=== PATIENT | female | born 1965 | race Caucasian/White ===

== ENCOUNTER 2016-10-11 10:41 | Outpatient (CLI) | payer BC | END 2016-10-11 10:42 | disposition home or self-care (01) | DX: N95.0 Postmenopausal bleeding (principal); Z01.812 Encounter for preprocedural laboratory examination ==

== ENCOUNTER 2016-10-13 07:47 | Day surgery (SDC) | payer BC ==
[~2016-10-13 07:47] MED LIST: CELECOXIB 100 MG CAPSULE PO ONE; miSOPROStol 200 MCG TABLET ONE
[2016-10-13] MEDS ORDERED: LACTATED RINGERS 1,000 ML IV ONE ×3 (08:20→10:00)
[2016-10-13] MEDS ORDERED: PROPOFOL 200 MG/20 ML VIAL IVP ONE (08:30)
[2016-10-13] MEDS ORDERED: fentaNYL 100 MCG/2 ML VIAL IVP ONE (08:30)
[2016-10-13] MEDS ORDERED: MIDAZOLAM 2 MG/2 ML VIAL IVP ONE (08:30)
[2016-10-13] MEDS ORDERED: ONDANSETRON 4 MG/2 ML VIAL IVP ONE (08:30)
[2016-10-13] MEDS ORDERED: DEXAMETHASONE 4 MG/ML VIAL IVP ONE (08:30)
[2016-10-13] MEDS ORDERED: LIDOCAINE-PF 2% 10 ML AMP SUBQ ONE (08:30)
[2016-10-13] MEDS: MEPERIDINE 50 MG/ML SYRINGE ONE ×2 (09:30→09:37)
[2016-10-13] MEDS: fentaNYL 100 MCG/2 ML VIAL ONE ×2 (09:34→09:48)
[2016-10-13] MEDS ORDERED: oxyCODONE 5 MG TABLET ONE (10:07)
== END 2016-10-13 07:48 | disposition home or self-care (01) ==
PROC: 0UB98ZX Excision of Uterus, Via Natural or Artificial Opening Endoscopic, Diagnostic (ICD-10-PCS; 2016-10-13)
PROC: 0UDB8ZZ Extraction of Endometrium, Via Natural or Artificial Opening Endoscopic (ICD-10-PCS; principal; 2016-10-13 08:50)
DX: N95.0 Postmenopausal bleeding (principal); R10.9 Unspecified abdominal pain; D25.0 Submucous leiomyoma of uterus; N85.8 Other specified noninflammatory disorders of uterus; Z90.79 Acquired absence of other genital organ(s); Z90.722 Acquired absence of ovaries, bilateral; E66.9 Obesity, unspecified; Z68.39 Body mass index [BMI] 39.0-39.9, adult; J45.20 Mild intermittent asthma, uncomplicated; F17.210 Nicotine dependence, cigarettes, uncomplicated
CPT/HCPCS: 58561; A9270; J7120

== ENCOUNTER 2016-12-24 08:35 | Outpatient (CLI) | payer BC | END 2016-12-24 08:36 | disposition home or self-care (01) | DX: S83.282A Other tear of lateral meniscus, current injury, left knee, initial encounter (principal); M65.862 Other synovitis and tenosynovitis, left lower leg; M25.462 Effusion, left knee; M23.92 Unspecified internal derangement of left knee ==

== ENCOUNTER 2017-08-18 15:08 | Emergency (ER) | payer BC ==
[2017-08-18 15:34] LABS: BILIRUBIN,URINE NEGATIVE (NEGATIVE)
[2017-08-18 15:38] LABS: UA CHARGE (STRIP ONLY) YES; UR CULTURE IF IND NOT INDICATED
[2017-08-18 15:55] LABS: BASOPHILS # (AUTO) 0.1 10^3/uL (0.0-0.1); BASOPHILS % (AUTO) 1.1 %; EOSINOPHILS # (AUTO) 0.1 10^3/uL (0.0-0.7); EOSINOPHILS % (AUTO) 0.9 %; HCT - HEMATOCRIT 42.4 % (37.0-47.0); HGB - HEMOGLOBIN 14.4 g/dL (12.0-16.0); LYMPHOCYTES # (AUTO) 2.2 10^3/uL (1.5-3.5); LYMPHOCYTES % (AUTO) 21.4 %; MEAN CORPUSCULAR HEMOGLOBIN 29.8 pg (27.0-31.0); MEAN CORPUSCULAR HGB CONC 34.1 g/dL (32.0-36.0); MEAN CORPUSCULAR VOLUME 87.7 fL (81.0-99.0); MEAN PLATELET VOLUME 8.2 fL (7.9-10.8); MONOCYTES # (AUTO) 0.8 10^3/uL (0.0-1.0); MONOCYTES % (AUTO) 7.4 %; NEUTROPHILS % (AUTO) 69.2 %; RED BLOOD COUNT 4.84 10^6/uL (4.20-5.40); RED CELL DISTRIBUTION WIDTH 14.5 % (12.0-15.0); UNCORRECTED WHITE BLOOD COUNT 10.1 x10^3/uL; WHITE BLOOD COUNT 10.1 x10^3/uL (4.8-10.8)
[2017-08-18 16:06] LABS: ALBUMIN/GLOBULIN RATIO 1.1 (1.0-2.2); BILIRUBIN,TOTAL 0.3 mg/dL (0.2-1.0); CALCIUM 9.7 mg/dL (8.5-10.3); CREATININE 0.9 mg/dL (0.4-1.0); POTASSIUM 3.8 mmol/L (3.5-5.0); TOTAL PROTEIN 7.4 g/dL (6.7-8.2)
[2017-08-18] MEDS ORDERED: ONDANSETRON 4 MG/2 ML VIAL IVP STA (16:28)
[2017-08-18] MEDS ORDERED: HYDROmorphone 1 MG/ML SYRINGE IVP STA (16:28)
[2017-08-18] MEDS ORDERED: HYDROmorphone 1 MG/ML SYRINGE ONE (16:34)
[2017-08-18] MEDS ORDERED: ONDANSETRON 4 MG/2 ML VIAL ONE (16:34)
[2017-08-18 16:48] VITALS: BP 138/92
--- NOTE | 2017-08-18 16:56 | ED Physician Documentation ---
PD HPI ABD PAIN - Stated complaint Stated Complaint: SHARP LOWER ABD PX - Chief complaint Chief Complaint: Abd Pain - History obtained from History obtained from: Patient, Family (daughter) - History of Present Illness Timing - onset: How many days ago (6) Timing - details: Intermittant Quality: Stabbing Location: RLQ Associated symptoms: No: Fever, Nausea, Vomiting, Dysuria, Chest pain Similar symptoms before: Has not had sx before - Additional information Additional information: The patient is a 48-year-old female who presents with right lower quadrant abdominal pain which she describes as a shooting, stabbing pain that has been occurring intermittently for the past 6 days. When it comes it lasts for about 5 minutes at a time and then resolve spontaneously. She denies any associated nausea, vomiting, back pain, dysuria, or fever. She denies history of similar symptoms in the past. Her past surgical history is significant for bilateral salpingo-oophorectomy for ovarian cysts. She is also status post cholecystectomy and status post bladder sling. Review of Systems Constitutional: denies: Fever Nose: denies: Congestion Throat: denies: Sore throat Cardiac: denies: Chest pain / pressure Respiratory: denies: Dyspnea, Cough GI: reports: Abdominal Pain. denies: Nausea, Vomiting, Diarrhea : denies: Dysuria Skin: denies: Rash Musculoskeletal: denies: Back pain Neurologic: denies: Focal weakness, Numbness, Headache PD PAST MEDICAL HISTORY - Past Medical History Cardiovascular: None Respiratory: None Neuro: Headache/migraine Endocrine/Autoimmune: None GI: None AREA SECRETARY: None : Incontinence HEENT: None Psych: None Musculoskeletal: Other Derm: None - Past Surgical History Past Surgical History: Yes General: Cholecystectomy Ortho: Other /AREA SECRETARY: Oophrectomy - Present Medications Home Medications: Ambulatory Orders Medication Instructions Recorded Confirmed Albuterol Sulfate [Proair Hfa] 8.5 gm IH DAILY PRN 04/16/14 10/11/16 Zolpidem Tartrate [Ambien] 10 mg PO DAILY PRN 04/16/14 10/11/16 Prochlorperazine [Compazine] 1 tab PO DAILY PRN 06/18/16 10/11/16 Verapamil [Calan] 480 mg PO DAILY 06/18/16 10/13/16 Melatonin 20 mg PO PRN PRN 10/11/16 10/13/16 - Allergies Allergies/Adverse Reactions: Allergies Allergy/AdvReac Type Severity Reaction Status Date / Time acetaminophen [From Vicodin] AdvReac Intermediate Itching Verified 08/18/17 15: 28 hydrocodone bitartrate * AdvReac Intermediate Itching Verified 08/18/17 15:28 [From Vicodin] - Social History Does the pt smoke?: No Smoking Status: Never smoker Does the pt drink ETOH?: Yes Does the pt have substance abuse?: No - Immunizations Immunizations are current?: Yes - POLST Patient has POLST: No PD ED PE NORMAL - Vitals Vital signs reviewed: Yes (initially hypertensive.) - General General: Alert and oriented X 3, Well developed/nourished - HEENT HEENT: Atraumatic, EOMI, Moist mucous membranes, Pharynx benign - Neck Neck: Supple, no meningeal sign, No adenopathy, No JVD - Cardiac Cardiac: RRR, No murmur - Respiratory Respiratory: No respiratory distress, Clear bilaterally - Abdomen Abdomen: Normal bowel sounds, Soft, Non tender, No organomegaly - Back Back: No CVA TTP, No spinal TTP - Derm Derm: No rash - Extremities Extremities: No edema, No calf tenderness / cord - Neuro Neuro: Alert and oriented X 3, No motor deficit, No sensory deficit Results - Vitals Vitals: Oxygen O2 Source Room air - Labs Labs: Laboratory Tests 08/18/17 08/18/17 08/18/17 15:15 15:40 15:40 WBC 10.1 RBC 4.84 Hgb 14.4 Hct 42.4 MCV 87.7 MCH 29.8 MCHC 34.1 RDW 14.5 Plt Count 254 MPV 8.2 Neut # 7.0 H Lymph # 2.2 [place] # 0.8 Eos # 0.1 Baso # 0.1 Absolute Nucleated RBC 0.01 Nucleated RBC % 0.0 Sodium 140 Potassium 3.8 Chloride 102 Carbon Dioxide 27 Anion Gap 11.0 BUN 14 Creatinine 0.9 Estimated GFR (MDRD) 65 L Glucose 114 H Calcium 9.7 Total Bilirubin 0.3 AST 19 ALT 18 Alkaline Phosphatase 29 L Total Protein 7.4 Albumin 3.9 Globulin 3.5 Albumin/Globulin Ratio 1.1 Lipase 23 Urine Color YELLOW Urine Clarity CLEAR Urine pH 6.0 Ur Specific [place] 1.025 Urine Protein NEGATIVE Urine Glucose (UA) NEGATIVE Urine Ketones TRACE Urine Occult Blood NEGATIVE Urine Nitrite NEGATIVE Urine Bilirubin NEGATIVE Urine Urobilinogen 0.2 (NORMAL) Ur Leukocyte Esterase NEGATIVE Ur Microscopic Review NOT INDICATED Urine Culture Comments NOT INDICATED - Rads (name of study) CT abd/pelvis w/o Radiology: Prelim report reviewed, EMP read contemporaneously, See rad report ( No urinary tract stones or obstruction.) PD MEDICAL DECISION MAKING - ED course Complexity details: reviewed results, re-evaluated patient, considered differential, d/w patient, d/w family ED course: The underlying cause of the patient's intermittent abdominal pain is unclear at this time. CBC is normal with a white count of 10.1. Chemistry panel and urinalysis are also unremarkable. CT scan of the abdomen and pelvis reveals no evidence of ureteral stone or acute appendicitis. Treatment in the emergency department included administration of hydromorphone 1 mg IV, and Zofran 4 mg IV. This was administered after one short bout of this stabbing pain described by the patient. She had no further episodes of pain while in the emergency department. Repeat examination of her abdomen reveals a benign abdomen. I discussed with her and her daughter the results of the workup, outpatient follow-up, as well as potentially worrisome signs or symptoms that should prompt reevaluation in the emergency department. Departure - Departure Disposition: 01 Home, Self Care Clinical Impression: Abdominal pain Qualifiers: Abdominal location: right lower quadrant Qualified Code(s): R10.31 - Right lower quadrant pain Condition: Stable Instructions: ED Abdominal Pain Unkn Cause, ED Abdominal Pain Adhesions Follow-Up: Juan Mauro MD [Provider Admit Priv/Credential] - Comments: You can use ibuprofen or Naprosyn if needed for pain. Follow up with your primary physician within 1-2 weeks. Call to schedule an appointment. Return to the emergency department if you develop increasing abdominal pain, persistent vomiting, fever, or otherwise worsening symptoms. Discharge Date/Time: 08/18/17 17:38
--- NOTE | 2017-08-18 16:58 | CT Preliminary Report ---
Exam: CT ABDOMEN/PELVIS W/O IMPRESSION: No urinary tract stones or obstruction. [facility] SITE ID: [id number]
--- NOTE | 2017-08-18 17:00 | CT Report ---
EXAM: CT ABDOMEN AND PELVIS (CT KUB) EXAM DATE: 08/18/2017 04:25 PM. CLINICAL HISTORY: Intermittent RLQ/right groin pain. COMPARISONS: None. TECHNIQUE: Routine axial helical CT imaging was performed through the abdomen and pelvis without IV c ontrast. Reconstructions: Coronal and sagittal. In accordance with CT protocol optimization, one or more of the following dose reduction techniques w ere utilized for this exam: automated exposure control, adjustment of mA and/or KV based on patient s ize, or use of iterative reconstructive technique. FINDINGS: Lung Bases: Unremarkable. Right Kidney/Ureter: No stones, hydronephrosis, or hydroureter. No perinephric fat stranding. Left Kidney/Ureter: No stones, hydronephrosis, or hydroureter. No perinephric fat stranding. Other Solid Organs: Noncontrast images of the solid organs are grossly unremarkable. Gallbladder/Bile Ducts: Unremarkable. Peritoneal Cavity: No free fluid, free air or april adenopathy. There is distal colon diverticulosis without evidence of diverticulitis. The appendix is normal. Pelvic Organs: No bladder stones or wall thickening. Noncontrast images of the visualized pelvic orga ns are unremarkable. Vasculature: Unremarkable. Other: None. IMPRESSION: No urinary tract stones or obstruction. [facility] Referring Provider Line: [phone] SITE ID: [id number]
== END 2017-08-18 17:38 | disposition home or self-care (01) ==
LOC: ED 15:08
DX: R10.31 Right lower quadrant pain (principal)
CPT/HCPCS: 74176; 80053; 81003; 83690; 85025; 96374; 96375; 99283; 99284; J1170; 81001; 87086

== ENCOUNTER 2017-09-11 18:37 | Emergency (ER) | payer BC ==
[2017-09-11 18:55] LABS: BILIRUBIN,URINE NEGATIVE (NEGATIVE)
[2017-09-11 18:56] LABS: UA CHARGE (STRIP ONLY) YES; UR CULTURE IF IND NOT INDICATED
[2017-09-11 20:42] LABS: BASOPHILS # (AUTO) 0.1 10^3/uL (0.0-0.1); EOSINOPHILS # (AUTO) 0.1 10^3/uL (0.0-0.7); EOSINOPHILS % (AUTO) 1.3 %; HCT - HEMATOCRIT 41.7 % (37.0-47.0); HGB - HEMOGLOBIN 14.2 g/dL (12.0-16.0); LYMPHOCYTES # (AUTO) 2.3 10^3/uL (1.5-3.5); LYMPHOCYTES % (AUTO) 25.2 %; MEAN CORPUSCULAR HEMOGLOBIN 29.8 pg (27.0-31.0); MEAN CORPUSCULAR VOLUME 87.7 fL (81.0-99.0); MEAN PLATELET VOLUME 8.7 fL (7.9-10.8); MONOCYTES # (AUTO) 0.7 10^3/uL (0.0-1.0); MONOCYTES % (AUTO) 8.2 %; NEUTROPHILS # (AUTO) 5.9 10^3/uL (1.5-6.6); NEUTROPHILS % (AUTO) 64.3 %; NUCLEATED RED BLOOD CELLS AUTO 0.1 /100WBC; RED BLOOD COUNT 4.76 10^6/uL (4.20-5.40); RED CELL DISTRIBUTION WIDTH 14.5 % (12.0-15.0); UNCORRECTED WHITE BLOOD COUNT 9.2 x10^3/uL; WHITE BLOOD COUNT 9.2 x10^3/uL (4.8-10.8)
[2017-09-11 20:50] LABS: ALBUMIN/GLOBULIN RATIO 1.1 (1.0-2.2); BILIRUBIN,TOTAL 0.3 mg/dL (0.2-1.0); CALCIUM 9.1 mg/dL (8.5-10.3); TOTAL PROTEIN 7.4 g/dL (6.7-8.2)
[2017-09-11 20:53] LABS: HCG UR QUAL NEGATIVE
[2017-09-11] MEDS ORDERED: HYDROcod/ACETAM 5/325 MG TABLET PO STA (21:42)
--- NOTE | 2017-09-11 22:12 | Ultrasound Preliminary Report ---
Exam: US PEL NON OB W/TV + DOP LTD IMPRESSION: 1. Endometrium measures 10 mm. This is thicker than expected for a postmenopausal woman. No focal mas s or polyp. If the patient has dysfunctional uterine bleeding, consider endometrial sampling. 2. No uterine fibroids. 3. Both ovaries are surgically absent per report. No adnexal abnormality or mass. No free fluid is no jeniffer. [facility] SITE ID: [id number]
[2017-09-11] MEDS ORDERED: HYDROmorphone 1 MG/ML SYRINGE IVP STA (22:17)
[2017-09-11 22:33] VITALS: BP 131/76
[2017-09-11] MEDS ORDERED: oxyCODONE/ACET 5/325 Prepack 4 PO STA (22:43)
--- NOTE | 2017-09-11 22:47 | ED Physician Documentation ---
History of Present Illness - Stated complaint Stated Complaint: ABD PX - Chief complaint Chief Complaint: Abd Pain - History obtained from History obtained from: Patient (pt is here for RLQ/Right adnexa pain. states that it started 3 weeks ago while whe was sitting at a bar. Was seen in the ER at that time and had a neg CT scan. she went to her PCM after that ER visit and the decision was made just to see if the symptoms worsened. She states that the pain did somewhat improve until this past weekend. She denies nausea has had some diarrhea over the past couple days, no urinary sx, no vaginal bleeding or vaginal discharge, no rashes, has had her ovaries removed. no travel, no skin changes, no ABX use, no fevers,) Review of Systems Constitutional: denies: Fever, Chills Throat: denies: Sore throat Cardiac: denies: Chest pain / pressure, Palpitations Respiratory: denies: Dyspnea, Cough GI: reports: Abdominal Pain, Diarrhea. denies: Abdominal Swelling, Nausea, Vomiting, Constipation, Hematemesis, Bloody / black stool : denies: Dysuria, Frequency, Hesitancy, Unable to Void, Incontinent, Hematuria, Discharge, Vaginal bleeding, Control, Hysterectomy Skin: denies: Rash, Lesions Musculoskeletal: denies: Back pain Neurologic: denies: Generalized weakness, Headache, Head injury, LOC PD PAST MEDICAL HISTORY - Past Medical History Cardiovascular: None Respiratory: None Neuro: Headache/migraine Endocrine/Autoimmune: None GI: None DEPUTY JAILER: None : Incontinence HEENT: None Psych: None Musculoskeletal: Other Derm: None - Past Surgical History Past Surgical History: Yes General: Cholecystectomy Ortho: Other /DEPUTY JAILER: Oophrectomy - Present Medications Home Medications: Ambulatory Orders Medication Instructions Recorded Confirmed Albuterol Sulfate [Proair Hfa] 8.5 gm IH DAILY PRN 04/16/14 09/11/17 Zolpidem Tartrate [Ambien] 10 mg PO DAILY PRN 04/16/14 09/11/17 Prochlorperazine [Compazine] 1 tab PO DAILY PRN 06/18/16 09/11/17 Verapamil [Calan] 480 mg PO DAILY 06/18/16 09/11/17 Melatonin 20 mg PO PRN PRN 10/11/16 09/11/17 Varenicline Tartrate [Chantix] 1 tab PO DAILY 09/11/17 09/11/17 - Allergies Allergies/Adverse Reactions: Allergies Allergy/AdvReac Type Severity Reaction Status Date / Time acetaminophen [From Vicodin] AdvReac Intermediate Itching Verified 08/18/17 15: 28 hydrocodone bitartrate * AdvReac Intermediate Itching Verified 08/18/17 15:28 [From Vicodin] - Social History Does the pt smoke?: No Smoking Status: Never smoker Does the pt drink ETOH?: Yes Does the pt have substance abuse?: No - Immunizations Immunizations are current?: Yes - POLST Patient has POLST: No PD ED PE NORMAL - Vitals Vital signs reviewed: Yes - General General: Alert and oriented X 3, No acute distress, Well developed/nourished - HEENT HEENT: Atraumatic, Moist mucous membranes - Cardiac Cardiac: RRR, No murmur - Respiratory Respiratory: No respiratory distress - Abdomen Abdomen: Normal bowel sounds, Soft. No: Non tender (TTP pinpoint lower right ABD and right adnexa. ) - Back Back: No CVA TTP - Derm Derm: Normal color, Warm and dry, No rash - Extremities Extremities: No deformity, No edema - Neuro Neuro: Alert and oriented X 3 Eye Opening: Spontaneous Motor: Obeys Commands Verbal: Oriented GCS Score: 15 - Psych Psych: Normal mood, Normal affect Results - Vitals Vitals: Vital Signs - 24 hr 09/11/17 09/11/17 09/11/17 18:38 21:48 22:31 Temperature 37.3 C Heart Rate 106 H 85 87 Respiratory 18 18 18 Rate Blood Pressure 171/99 H 130/85 H 131/76 H O2 Saturation 97 99 97 09/11/17 22:43 Temperature Heart Rate 87 Respiratory 18 Rate Blood Pressure O2 Saturation 99 Oxygen O2 Source Room air - Labs Labs: Laboratory Tests 09/11/17 09/11/17 09/11/17 18:40 18:45 20:20 WBC 9.2 RBC 4.76 Hgb 14.2 Hct 41.7 MCV 87.7 MCH 29.8 MCHC 34.0 RDW 14.5 Plt Count 251 MPV 8.7 Neut # 5.9 Lymph # 2.3 [place] # 0.7 Eos # 0.1 Baso # 0.1 Absolute Nucleated RBC 0.01 Nucleated RBC % 0.1 Sodium Potassium Chloride Carbon Dioxide Anion Gap BUN Creatinine Estimated GFR (MDRD) Glucose Calcium Total Bilirubin AST ALT Alkaline Phosphatase Total Protein Albumin Globulin Albumin/Globulin Ratio Lipase Urine Color YELLOW Urine Clarity CLEAR Urine pH 6.0 Ur Specific [place] 1.025 1.025 Urine Protein NEGATIVE Urine Glucose (UA) NEGATIVE Urine Ketones NEGATIVE Urine Occult Blood NEGATIVE Urine Nitrite NEGATIVE Urine Bilirubin NEGATIVE Urine Urobilinogen 0.2 (NORMAL) Ur Leukocyte Esterase NEGATIVE Ur Microscopic Review NOT INDICATED Urine Culture Comments NOT INDICATED Urine HCG, Qual NEGATIVE 09/11/17 20:20 WBC RBC Hgb Hct MCV MCH MCHC RDW Plt Count MPV Neut # Lymph # [place] # Eos # Baso # Absolute Nucleated RBC Nucleated RBC % Sodium 138 Potassium 4.0 Chloride 102 Carbon Dioxide 27 Anion Gap 9.0 BUN 16 Creatinine 1.0 Estimated GFR (MDRD) 58 L Glucose 100 Calcium 9.1 Total Bilirubin 0.3 AST 17 ALT 18 Alkaline Phosphatase 32 L Total Protein 7.4 Albumin 3.9 Globulin 3.5 Albumin/Globulin Ratio 1.1 Lipase 22 Urine Color Urine Clarity Urine pH Ur Specific [place] Urine Protein Urine Glucose (UA) Urine Ketones Urine Occult Blood Urine Nitrite Urine Bilirubin Urine Urobilinogen Ur Leukocyte Esterase Ur Microscopic Review Urine Culture Comments Urine HCG, Qual - Rads (name of study) pelvic US Radiology: Final report received PD MEDICAL DECISION MAKING - ED course Complexity details: reviewed old records, reviewed results, re-evaluated patient , considered differential, d/w patient, d/w family ED course: Pt had CT scan 3 weeks ago in this ER for this same pain was no acute abnormality was found. No defined abnormality seen on pelvic US today. Discussed her endometrium with her and she states that she did have a D&C for similar sx earlier this year. she states that the diarrhea that she has been having does not seem to change the pain. She has had both ovaries removed. She has no fevers. her hx and PE do not fit with acute appy. Considered femoral hernia but the CT 3 weeks ago for this same pain did not show this. UA clear today. considered PID but pt states she is not sexually active. she has not had a colonoscopy up to this point. also considered endometrosis. I discussed all of this with the patient. we discussed that no defined emergent process was found today. she expressed understanding she stated that she will call her PCM and her OB to discuss further work up and possible consult to GI. She was given return precautions. Departure - Departure Disposition: 01 Home, Self Care Clinical Impression: Abdominal pain Condition: Good Instructions: ED Abdominal Pain Unkn Cause Follow-Up: Juan Mauro MD [Primary Care Provider] - Comments: Call your primary care provider and your DEPUTY JAILER provider to discuss follow up and continued work up for this pain. No defined etiology was found today so if your symptoms worsen of if you have new symptoms you need to be seen again.
--- NOTE | 2017-09-11 23:54 | Ultrasound Report ---
EXAM: PELVIC ULTRASOUND EXAM DATE: 09/11/2017 09:41 PM. CLINICAL HISTORY: Right lower quadrant pain. COMPARISON: 08/18/2017. TECHNIQUE: Realtime transabdominal pelvic scan performed to identify the uterus and adnexa and as an overview of other pelvic structures, followed by transvaginal scan to provide greater detail of the u terus and adnexa, with static image documentation. FINDINGS: Uterus: 6.7 x 3.0 x 4.3 cm, volume 45.6 cc. Anteverted position. Normal overall size and echotexture. Masses: None. Endometrium: 10 mm. No endometrial mass or polyp. Cervix: Unremarkable. Right Ovary: Surgically absent. No adnexal mass. Left Ovary: Surgically absent. No adnexal mass. Free Fluid: None. Other: 2 small morphologically normal lymph nodes are noted in the right lower quadrant. IMPRESSION: 1. Endometrium measures 10 mm. This is thicker than expected for a postmenopausal woman. No focal mas s or polyp. If the patient has dysfunctional uterine bleeding, consider endometrial sampling. 2. No uterine fibroids. 3. Both ovaries are surgically absent per report. No adnexal abnormality or mass. No free fluid is no jeniffer. [facility] Referring Provider Line: [phone] SITE ID: [id number]
== END 2017-09-11 23:03 | disposition home or self-care (01) ==
LOC: ED 18:37
DX: R10.31 Right lower quadrant pain (principal); Z90.722 Acquired absence of ovaries, bilateral
CPT/HCPCS: 36415; 76830; 76856; 80053; 81003; 81025; 83690; 85025; 93976; 96374; 99283; 99284; A9270; J1170; 81001; 87086

== ENCOUNTER 2018-03-28 14:53 | Outpatient (CLI) | payer BC | END 2018-03-28 14:54 | disposition critical access hospital (66) | LOC: EMS 14:53 | PROVIDERS: ATTEND Surgery | DX: R04.0 Epistaxis (principal) | CPT/HCPCS: A0425; A0429 ==

== ENCOUNTER 2018-03-28 15:18 | Emergency (ER) | payer BC ==
[2018-03-28] MEDS ORDERED: LIDOCAINE-EPINEPH-TETRACAINE 3 ML SYRINGE TOP STA (16:29)
--- NOTE | 2018-03-28 17:19 | ED Physician Documentation ---
PD HPI HEENT - Stated complaint Stated Complaint: NOSE BLEED - Chief complaint Chief Complaint: Heent - History obtained from History obtained from: Patient, Family - History of Present Illness Timing - onset: How many days ago (5) Timing - duration: Days (5) Timing - details: Gradual onset, Still present Location: Nose Improves: Nothing Worsens: Everything Associated symptoms: Congestion, Rhinorrhea, Cough Similar symptoms before: Has not had sx before Recently seen: Not recently seen - Additional information Additional information: 52-year-old female with a history of reactive airway disease disease has developed acute epistaxis from the left nares. She has been able to control the bleeding intermittently and she is had bleeding intermittently now for 5 days. She has got a lot of blood all over her house and she has had a cough and congestion worsening of her wheezing and has made a plan to go into see her doctor but was diverted by this bleeding nose. She had bleeding while she was at work and the ambulance was called. Review of Systems Constitutional: denies: Fever Eyes: denies: Decreased vision Ears: denies: Ear pain Nose: reports: Rhinorrhea / runny nose, Congestion, Epistaxis Throat: denies: Sore throat Cardiac: denies: Chest pain / pressure, Palpitations Respiratory: reports: Dyspnea, Cough GI: denies: Abdominal Pain, Nausea, Vomiting : denies: Dysuria, Frequency Skin: denies: Rash Musculoskeletal: denies: Neck pain, Back pain, Extremity pain PD PAST MEDICAL HISTORY - Past Medical History Cardiovascular: None Respiratory: None Endocrine/Autoimmune: None GI: None LAMINA SEARCHER: None : Incontinence HEENT: None Psych: None Musculoskeletal: Other Derm: None - Past Surgical History Past Surgical History: Yes General: Cholecystectomy Ortho: Other /LAMINA SEARCHER: Oophrectomy - Present Medications Home Medications: Ambulatory Orders Medication Instructions Recorded Confirmed Albuterol Sulfate [Proair Hfa] 8.5 gm IH DAILY PRN 04/16/14 09/11/17 Zolpidem Tartrate [Ambien] 10 mg PO DAILY PRN 04/16/14 09/11/17 Prochlorperazine [Compazine] 1 tab PO DAILY PRN 06/18/16 09/11/17 Verapamil [Calan] 480 mg PO DAILY 06/18/16 09/11/17 Melatonin 20 mg PO PRN PRN 10/11/16 09/11/17 Varenicline Tartrate [Chantix] 1 tab PO DAILY 09/11/17 09/11/17 Azithromycin [Zithromax] 250 mg PO DAILY #6 tablet 03/28/18 predniSONE [Deltasone] 10 mg PO DAILY #26 tablet 03/28/18 - Allergies Allergies/Adverse Reactions: Allergies Allergy/AdvReac Type Severity Reaction Status Date / Time acetaminophen [From Vicodin] AdvReac Intermediate Itching Verified 03/28/18 15: 24 hydrocodone bitartrate * AdvReac Intermediate Itching Verified 03/28/18 15:24 [From Vicodin] - Social History Does the pt smoke?: No Smoking Status: Never smoker Does the pt drink ETOH?: Yes Does the pt have substance abuse?: No - Immunizations Immunizations are current?: Yes - POLST Patient has POLST: No PD ED PE NORMAL - Vitals Vital signs reviewed: Yes (hypertensive ) - General General: Alert and oriented X 3, No acute distress, Well developed/nourished - HEENT HEENT: Atraumatic, PERRL, EOMI, Other (There is erythema along the umbo and flattening of the umbo on the left. The right is less involved. There is evidence of recent bleeding from a friable nasal septum on the left ) - Neck Neck: Supple, no meningeal sign, No bony TTP - Cardiac Cardiac: RRR, No murmur - Respiratory Respiratory: No respiratory distress, Other (diminished breath sounds with faint wheeze bilaterally ) - Derm Derm: Normal color, Warm and dry, No rash - Extremities Extremities: No deformity, No edema - Neuro Neuro: Alert and oriented X 3, No motor deficit, No sensory deficit, Normal speech Eye Opening: Spontaneous Motor: Obeys Commands Verbal: Oriented GCS Score: 15 - Psych Psych: Normal mood, Normal affect Results - Vitals Vitals: Vital Signs - 24 hr 03/28/18 15:19 Temperature 36.9 C Heart Rate 95 Respiratory 18 Rate Blood Pressure 150/94 H O2 Saturation 94 Oxygen O2 Source Room air Procedures - Epistaxis Site: Left, Anterior Preparation: Clamp / pressure applied, Other (l.e.t. applied) Treatment: Silver Nitrate Other: Observed - no bleeding, Pt tolerated well, Antibiotics prescribed PD MEDICAL DECISION MAKING - ED course Complexity details: reviewed results, re-evaluated patient, considered differential, d/w patient, d/w family ED course: 52-year-old female with acute epistaxis has reactive airway disease and acute exacerbation. Nasal septum was cauterized with silver nitrate with good result. Will place her on some prednisone and azithromycin for otitis and exacerbation of reactive airway disease. - Sepsis Event Vital Signs: Vital Signs - 24 hr 03/28/18 15:19 Temperature 36.9 C Heart Rate 95 Respiratory 18 Rate Blood Pressure 150/94 H O2 Saturation 94 Oxygen O2 Source Room air Departure - Departure Disposition: 01 Home, Self Care Clinical Impression: Anterior epistaxis Otitis media Qualifiers: Otitis media type: suppurative Chronicity: acute Laterality: left Recurrence: not specified as recurrent Spontaneous tympanic membrane rupture: without spontaneous rupture Qualified Code(s): H66.002 - Acute suppurative otitis media without spontaneous rupture of ear drum, left ear Exacerbation of asthma Qualifiers: Asthma severity: mild Asthma persistence: intermittent Qualified Code(s): J45.21 - Mild intermittent asthma with (acute) exacerbation Condition: Stable Instructions: ED Otitis Media Acute Adult, ED Reactive Airway Disease, ED Nosebleed Follow-Up: Juan Mauro MD [Primary Care Provider] - Prescriptions: Azithromycin [Zithromax] 250 mg PO DAILY #6 tablet predniSONE [Deltasone] 10 mg PO DAILY #26 tablet
[2018-03-28 17:44] VITALS: BP 140/90
== END 2018-03-28 17:43 | disposition home or self-care (01) ==
LOC: EDUNIT# → SUPCPDRO 15:18 → ED 15:18
DX: R04.0 Epistaxis (principal); H66.002 Acute suppurative otitis media without spontaneous rupture of ear drum, left ear; J45.901 Unspecified asthma with (acute) exacerbation
CPT/HCPCS: 30901; 99283

== ENCOUNTER 2018-03-29 08:37 | Emergency (ER) | payer BC ==
[2018-03-29 08:50] VITALS: BP 112/98
--- NOTE | 2018-03-29 08:54 | ED Physician Documentation ---
PD HPI HEENT - Stated complaint Stated Complaint: NOSE BLEED - Chief complaint Chief Complaint: Heent - History obtained from History obtained from: Patient - History of Present Illness Timing - onset: Enter time (0800), Today Timing - duration: Minutes Timing - details: Abrupt onset, Still present Location: Nose Improves: Other (calcium infused cotton plegets and clamp) Worsens: Everything Associated symptoms: Congestion, Rhinorrhea, Cough Similar symptoms before: Diagnosis (anterior epistaxis) Recently seen: Emergency Dept - Additional information Additional information: 52-year-old female has developed nosebleeds over the past 5 days and she has had this happen to her multiple times. She is come to the emergency department was cauterized yesterday with silver nitrate she had control the bleeding overnight and this morning got up to go to work and had bleeding again. She does have some inflammation of the anterior septum and yesterday we placed her on some prednisone and a Zithromax for exacerbation of asthma. She has not filled these medicines as yet. 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 Review of Systems Constitutional: denies: Fever Eyes: denies: Decreased vision Nose: reports: Rhinorrhea / runny nose, Congestion Throat: denies: Sore throat Cardiac: denies: Chest pain / pressure, Palpitations Respiratory: reports: Dyspnea, Cough GI: denies: Vomiting : denies: Dysuria PD PAST MEDICAL HISTORY - Past Medical History Cardiovascular: None Respiratory: None Endocrine/Autoimmune: None GI: None SENIOR PORTFOLIO ANALYST: None : Incontinence HEENT: None Psych: None Musculoskeletal: Other Derm: None - Past Surgical History Past Surgical History: Yes General: Cholecystectomy Ortho: Other /SENIOR PORTFOLIO ANALYST: Oophrectomy - Present Medications Home Medications: Ambulatory Orders Medication Instructions Recorded Confirmed Albuterol Sulfate [Proair Hfa] 8.5 gm IH DAILY PRN 04/16/14 09/11/17 Zolpidem Tartrate [Ambien] 10 mg PO DAILY PRN 04/16/14 09/11/17 Prochlorperazine [Compazine] 1 tab PO DAILY PRN 06/18/16 09/11/17 Verapamil [Calan] 480 mg PO DAILY 06/18/16 09/11/17 Melatonin 20 mg PO PRN PRN 10/11/16 09/11/17 Varenicline Tartrate [Chantix] 1 tab PO DAILY 09/11/17 09/11/17 Azithromycin [Zithromax] 250 mg PO DAILY #6 tablet 03/28/18 predniSONE [Deltasone] 10 mg PO DAILY #26 tablet 03/28/18 - Allergies Allergies/Adverse Reactions: Allergies Allergy/AdvReac Type Severity Reaction Status Date / Time acetaminophen [From Vicodin] AdvReac Intermediate Itching Verified 03/29/18 08: 50 hydrocodone bitartrate * AdvReac Intermediate Itching Verified 03/29/18 08:50 [From Vicodin] - Social History Does the pt smoke?: No Smoking Status: Never smoker Does the pt drink ETOH?: Yes Does the pt have substance abuse?: No - Immunizations Immunizations are current?: Yes - POLST Patient has POLST: No PD ED PE NORMAL - Vitals Vital signs reviewed: Yes (hypertensive diastolic mild ) - General General: Alert and oriented X 3, Well developed/nourished, Other (mildly anxious ) - HEENT HEENT: Atraumatic, PERRL, EOMI, Other (exam of the nasal mucousa reveals the prior AgNO3 cautery site without bleeding and evidence of recent bleeding from the posterior margin of the cautery site. ) - Neck Neck: Supple, no meningeal sign, No bony TTP - Respiratory Respiratory: No respiratory distress - Derm Derm: Normal color, Warm and dry, No rash - Extremities Extremities: No deformity, No edema - Neuro Neuro: No motor deficit, No sensory deficit Eye Opening: Spontaneous Motor: Obeys Commands Verbal: Oriented GCS Score: 15 - Psych Psych: Normal mood, Normal affect Results - Vitals Vitals: Vital Signs - 24 hr 03/29/18 08:42 Temperature 36.6 C Heart Rate 99 Respiratory 20 Rate Blood Pressure 112/98 H O2 Saturation 96 Oxygen O2 Source Room air PD MEDICAL DECISION MAKING - ED course Complexity details: considered differential, d/w patient ED course: This 52-year-old female with recurrent nosebleed had silver nitrate cautery done yesterday and she appears to bleed blood today from the margin of this area that was cauterized. She has been able to control her bleeding by placing cotton pledgets soaked in calcium and clamp. She demonstrates in the emergency department that she does appear to have adequate technique. I believe that she will be able to control her nose bleeding better than placing a Rhino Rocket. I discussed these options with the patient and she will do her best to control her bleeding until her medications have improved her mucosal irritation. - Sepsis Event Vital Signs: Vital Signs - 24 hr 03/29/18 08:42 Temperature 36.6 C Heart Rate 99 Respiratory 20 Rate Blood Pressure 112/98 H O2 Saturation 96 Oxygen O2 Source Room air Departure - Departure Disposition: Home, Self Care Clinical Impression: Anterior epistaxis Condition: Stable Instructions: ED Nosebleed Follow-Up: Juan Mauro MD [Primary Care Provider] - Forms: Activity restrictions
== END 2018-03-29 09:13 | disposition home or self-care (01) ==
LOC: ED 08:37
DX: R04.0 Epistaxis (principal)
CPT/HCPCS: 99283

== ENCOUNTER 2019-05-15 13:01 | Outpatient (CLI) | payer BC ==
--- NOTE | 2019-05-16 13:14 | Ultrasound Report ---
Reason: RIGHT UPPER QUADRANT PAIN Procedure Date: 05/15/2019 Accession Number: [id number] / [id number] Procedure: US - Abdomen Limited CPT Code: FULL RESULT: EXAM: ABDOMEN ULTRASOUND LIMITED, RUQ EXAM DATE: 05/15/2019 01:35 PM. CLINICAL HISTORY: RIGHT UPPER QUADRANT PAIN. COMPARISON: None. TECHNIQUE: Real-time scanning was performed with static images obtained. FINDINGS: Liver: Liver parenchyma appears somewhat echogenic which can mask underlying mass lesions, no masses seen. Liver appears subjectively enlarged, at least 22.6 cm. Main portal vein flow: Hepatopetal. Gallbladder: Gallbladder is not seen, reportedly surgically absent. Biliary System: CBD measures The CBD is enlarged measuring up to 1 cm which can be a normal finding status post cholecystectomy. No intrahepatic or extrahepatic ductal dilatation. Other: None. IMPRESSION: Status post cholecystectomy. Echogenic liver which is most often seen with hepatic steatosis. RADIA
== END 2019-05-15 13:02 | disposition home or self-care (01) ==
LOC: DI 13:01
PROVIDERS: ATTEND Family Medicine
DX: R10.11 Right upper quadrant pain (principal); Z90.49 Acquired absence of other specified parts of digestive tract
CPT/HCPCS: 76705

== ENCOUNTER 2019-05-23 19:12 | Emergency (ER) | payer BC ==
[2019-05-23 19:41] LABS: BASOPHILS # (AUTO) 0.1 10^3/uL (0.0-0.1); BASOPHILS % (AUTO) 0.6 %; EOSINOPHILS # (AUTO) 0.1 10^3/uL (0.0-0.7); EOSINOPHILS % (AUTO) 1.3 %; HGB - HEMOGLOBIN 14.3 g/dL (12.0-16.0); LYMPHOCYTES # (AUTO) 2.1 10^3/uL (1.5-3.5); LYMPHOCYTES % (AUTO) 21.1 %; MEAN CORPUSCULAR HEMOGLOBIN 28.8 pg (27.0-31.0); MEAN CORPUSCULAR HGB CONC 31.7 g/dL (32.0-36.0); MEAN CORPUSCULAR VOLUME 90.7 fL (81.0-99.0); MONOCYTES # (AUTO) 0.8 10^3/uL (0.0-1.0); MONOCYTES % (AUTO) 8.7 %; NEUTROPHILS # (AUTO) 6.6 10^3/uL (1.5-6.6); PLT - PLATELET COUNT 259 10^3/uL (130-450); RED BLOOD COUNT 4.97 10^6/uL (4.20-5.40); RED CELL DISTRIBUTION WIDTH 14.6 % (12.0-15.0); WHITE BLOOD COUNT 9.7 x10^3/uL (4.8-10.8)
[2019-05-23 19:52] LABS: BILIRUBIN,TOTAL 0.4 mg/dL (0.2-1.0); CALCIUM 9.5 mg/dL (8.5-10.3); TOTAL PROTEIN 7.9 g/dL (6.7-8.2)
[2019-05-23 19:57] LABS: BILIRUBIN,URINE NEGATIVE (NEGATIVE); GLUCOSE, URINE (UA) NEGATIVE (NEGATIVE); KETONES,URINE (UA) NEGATIVE (NEGATIVE); LEUKOCYTE ESTERASE, URINE NEGATIVE (NEGATIVE); NITRITE,URINE NEGATIVE (NEGATIVE); OCCULT BLOOD,URINE NEGATIVE (NEGATIVE); PROTEIN,URINE TRACE mg/dL (NEGATIVE); UROBILINOGEN,URINE 0.2 (NORMAL) E.U./dL (NORMAL)
[2019-05-23 20:00] LABS: CLARITY,URINE CLEAR (CLEAR)
--- NOTE | 2019-05-23 21:39 | ED Physician Documentation ---
PD HPI ABD PAIN - Stated complaint Stated Complaint: R SIDE AB PX - Chief complaint Chief Complaint: Abd Pain - History obtained from History obtained from: Patient, Family - History of Present Illness Timing - onset: How many months ago (1) Timing - duration: Months (1) Timing - details: Gradual onset, Still present, Waxing and waning Quality: Cramping, Sharp Location: RUQ Improved by: Laying still, BM Worsened by: Moving, Position, Palpation Associated symptoms: Other (soilded herself yesterday with a bout of pain.). No: Vomiting Similar symptoms before: Has not had sx before Recently seen: Clinic - Additional information Additional information: 53-year-old female is had pain in her right abdomen for the past month. She has had increasing symptoms especially over the past 2 weeks. She has intermittent severe pain with cramping in the right side but feels like something is going to explode inside. She has had a bowel movement yesterday that happened after she had an episode of pain and she ended up soiling herself with this. She has been into see her primary care doctor and an ultrasound of the right upper quadrant has been done which demonstrates hepatic steatosis. She has her gallbladder out. Review of Systems Constitutional: denies: Fever Throat: denies: Sore throat Respiratory: denies: Cough GI: reports: Abdominal Pain. denies: Constipation : denies: Dysuria, Frequency Skin: denies: Rash Musculoskeletal: denies: Neck pain, Back pain, Extremity pain Neurologic: denies: Generalized weakness, Focal weakness, Numbness PD PAST MEDICAL HISTORY - Past Medical History Cardiovascular: None Respiratory: None Endocrine/Autoimmune: None GI: None EMBEDDED LINUX ENGINEER: None : Incontinence HEENT: None Psych: None Musculoskeletal: Other Derm: None - Past Surgical History Past Surgical History: Yes General: Cholecystectomy Ortho: Other /EMBEDDED LINUX ENGINEER: Oophrectomy - Present Medications Home Medications: Ambulatory Orders Medication Instructions Recorded Confirmed Albuterol Sulfate [Proair Hfa] 8.5 gm IH DAILY PRN 04/16/14 09/11/17 Zolpidem Tartrate [Ambien] 10 mg PO DAILY PRN 04/16/14 09/11/17 Prochlorperazine [Compazine] 1 tab PO DAILY PRN 06/18/16 09/11/17 Verapamil [Calan] 480 mg PO DAILY 06/18/16 09/11/17 Melatonin 20 mg PO PRN PRN 10/11/16 09/11/17 Varenicline Tartrate [Chantix] 1 tab PO DAILY 09/11/17 09/11/17 Azithromycin [Zithromax] 250 mg PO DAILY #6 tablet 03/28/18 predniSONE [Deltasone] 10 mg PO DAILY #26 tablet 03/28/18 - Allergies Allergies/Adverse Reactions: Allergies Allergy/AdvReac Type Severity Reaction Status Date / Time acetaminophen [From Vicodin] AdvReac Intermediate Itching Verified 05/23/19 19:23 hydrocodone bitartrate * AdvReac Intermediate Itching Verified 05/23/19 19:23 [From Vicodin] - Social History Does the pt smoke?: No Smoking Status: Never smoker Does the pt drink ETOH?: Yes Does the pt have substance abuse?: No - Immunizations Immunizations are current?: Yes - POLST Patient has POLST: No PD ED PE NORMAL - Vitals Vital signs reviewed: Yes (hypertensive ) - General General: Alert and oriented X 3, No acute distress, Well developed/nourished - HEENT HEENT: Atraumatic, PERRL, EOMI - Neck Neck: Supple, no meningeal sign - Cardiac Cardiac: RRR, No murmur - Respiratory Respiratory: No respiratory distress - Abdomen Abdomen: Normal bowel sounds, Soft, Non distended, No organomegaly, Other (tenderness to the RUQ without gaurding or rebound tenderness. ) - Back Back: No CVA TTP, No spinal TTP - Derm Derm: Normal color, Warm and dry, No rash - Extremities Extremities: No deformity, No edema - Neuro Neuro: Alert and oriented X 3, mechanic field service 2-12 intact, No motor deficit, No sensory deficit, Normal speech Eye Opening: Spontaneous Motor: Obeys Commands Verbal: Oriented GCS Score: 15 - Psych Psych: Normal mood, Normal affect Results - Vitals Vitals: Vital Signs - 24 hr 05/23/19 05/23/19 05/23/19 19:20 21:30 21:55 Temperature 36.8 C Heart Rate 88 83 86 Respiratory 18 20 18 Rate Blood Pressure 129/87 H 147/100 H 126/71 O2 Saturation 96 97 97 Oxygen O2 Source Room air - Labs Labs: Laboratory Tests 05/23/19 05/23/19 05/23/19 19:35 19:35 19:40 WBC 9.7 RBC 4.97 Hgb 14.3 Hct 45.1 MCV 90.7 MCH 28.8 MCHC 31.7 L RDW 14.6 Plt Count 259 MPV 10.0 Neut # (Auto) 6.6 Lymph # (Auto) 2.1 [place] # (Auto) 0.8 Eos # (Auto) 0.1 Baso # (Auto) 0.1 Absolute Nucleated RBC 0.00 Nucleated RBC % 0.0 Sodium 142 Potassium 4.1 Chloride 103 Carbon Dioxide 31 Anion Gap 8.0 BUN 21 H Creatinine 1.0 Estimated GFR (MDRD) 58 L Glucose 91 Calcium 9.5 Total Bilirubin 0.4 AST 18 ALT 21 Alkaline Phosphatase 32 L Total Protein 7.9 Albumin 4.0 Globulin 3.9 Albumin/Globulin Ratio 1.0 Lipase 35 Urine Color YELLOW Urine Clarity CLEAR Urine pH 6.0 Ur Specific [place] 1.020 Urine Protein TRACE Urine Glucose (UA) NEGATIVE Urine Ketones NEGATIVE Urine Occult Blood NEGATIVE Urine Nitrite NEGATIVE Urine Bilirubin NEGATIVE Urine Urobilinogen 0.2 (NORMAL) Ur Leukocyte Esterase NEGATIVE Ur Microscopic Review NOT INDICATED Urine Culture Comments NOT INDICATED Procedures - Bedside sono Bedside sono by EMP: With use of bedside ultrasound the right kidney is imaged it is without evidence of hydronephrosis and it is sonographically nontender. PD MEDICAL DECISION MAKING - ED course Complexity details: reviewed old records, reviewed results, re-evaluated patient, considered differential, d/w patient, d/w family ED course: 53-year-old female with a history of undulating right-sided abdominal pain has a relatively benign abdominal exam here today with some mild right-sided abdominal tenderness. She has had symptoms for more than 1 month. My initial reaction is to get a CT scan of her abdomen pelvis with contrast [facility] I reviewed the patient's previous CT scan for a prior visit with abdominal pain and noted that she had stool and gas throughout every cut on the picture. I suspect the patient may have chronic constipation despite having bowel movements daily. I discussed my findings with the patient and recommended she take a dose of milk of magnesia tonight she is understanding of the inability to complete the work-up tonight and will follow-up as needed. Departure - Departure Disposition: 01 Home, Self Care Clinical Impression: Abdominal pain Qualifiers: Abdominal location: right upper quadrant Qualified Code(s): R10.11 - Right upper quadrant pain Constipation Qualifiers: Constipation type: unspecified constipation type Qualified Code(s): K59.00 - Constipation, unspecified Instructions: ED Abdominal Pain Unkn Cause, ED Constipation Follow-Up: Juan Mauro MD [Primary Care Provider] -
[2019-05-23 21:57] VITALS: BP 126/71
[2019-05-23] MEDS ORDERED: MAGNESIUM HYDROXIDE 2,400 MG/30 ML UDC PO STA (22:09)
== END 2019-05-23 22:28 | disposition home or self-care (01) ==
LOC: ED 19:12
DX: R10.11 Right upper quadrant pain (principal); K59.00 Constipation, unspecified
CPT/HCPCS: 36415; 80053; 81003; 83690; 85025; 99284; A9270; 81001; 87086

== ENCOUNTER 2019-05-28 08:27 | Outpatient (CLI) | payer BC ==
--- NOTE | 2019-05-29 00:27 | XRAY Report ---
Reason: ASTHMA Procedure Date: 05/28/2019 Accession Number: [id number] / [id number] Procedure: XRS - Chest 2 View X-Ray CPT Code: 84960 FULL RESULT: EXAM: CHEST RADIOGRAPHY EXAM DATE: 05/28/2019 08:36 AM. CLINICAL HISTORY: ASTHMA. Chronic cough since September 2018. COMPARISON: 01/23/2013 9:26 AM. TECHNIQUE: 2 views. FINDINGS: Lungs/Pleura: No consolidation, airspace disease, pleural effusion or pneumothorax. Mediastinum: Heart and mediastinal contours are unremarkable. IMPRESSION: No acute cardiopulmonary disease seen. RADIA
== END 2019-05-28 08:28 | disposition home or self-care (01) ==
LOC: DI.S 08:27
PROVIDERS: ATTEND Family Medicine
DX: J45.909 Unspecified asthma, uncomplicated (principal)
CPT/HCPCS: 71046

== ENCOUNTER 2019-05-29 07:35 | Outpatient (CLI) | payer BC ==
[2019-05-29] MEDS ORDERED: IOVERSOL 320 100 ML VIAL IVP ONE ×2 (07:49→10:48)
[2019-05-29] MEDS ORDERED: IOVERSOL 320 50 ML VIAL ONE (07:49)
[2019-05-29] MEDS ORDERED: IOVERSOL 320 50 ML VIAL PO ONE (10:48)
--- NOTE | 2019-05-30 04:23 | CT Report ---
Reason: ABN US Procedure Date: 05/29/2019 Accession Number: [id number] / [id number] Procedure: CT - Abdomen/Pelvis W CPT Code: FULL RESULT: EXAM: CT ABDOMEN AND PELVIS EXAM DATE: 05/29/2019 08:54 AM. CLINICAL HISTORY: Abnormal ultrasound. COMPARISONS: ABDOMEN/PELVIS W/O 08/18/2017 4:20 PM. TECHNIQUE: Routine helical CT imaging was performed through the abdomen and pelvis. IV contrast: OPTI 320 100ML. Enteric contrast: Present. Reconstructions: Coronal and sagittal. In accordance with CT protocol optimization, one or more of the following dose reduction techniques were utilized for this exam: automated exposure control, adjustment of mA and/or KV based on patient size, or use of iterative reconstructive technique. FINDINGS: ABDOMEN: Liver: Moderate hepatic steatosis. Stomach/Distal Esophagus: No significant abnormality. Gallbladder: Cholecystectomy. Bile Ducts: No significant abnormality. Pancreas: No significant abnormality. Spleen: No significant abnormality. Kidneys: No suspicious solid appearing lesion. No hydronephrosis. Adrenals: No significant abnormality. Bowel: No obstruction. Average fecal residual. Moderate descending and sigmoid colon diverticulosis without acute diverticulitis. Appendix: Normal. Lymph Nodes: No pathologically enlarged nodes. Vasculature: Normal caliber aorta. Fluid: No significant free fluid. Abdominal Wall: No significant abnormality. Other: No significant abnormality. PELVIS: Uterus and Ovaries: No significant abnormality. Bladder: No significant abnormality. Lymph Nodes: No pathologically enlarged nodes. Fluid: No significant free fluid. Other: None. BONES: No suspicious bony lesions. LOWER CHEST: No significant consolidation or effusion. IMPRESSION: 1. No acute abdominal or pelvic abnormality. 2. Distal descending and sigmoid colon diverticulosis without evidence of acute diverticulitis. 3. Prior cholecystectomy. RADIA
== END 2019-05-29 07:36 | disposition home or self-care (01) ==
LOC: DI 07:35
PROVIDERS: ATTEND Family Medicine
DX: K57.30 Diverticulosis of large intestine without perforation or abscess without bleeding (principal); Z90.49 Acquired absence of other specified parts of digestive tract
CPT/HCPCS: 74177; Q9967

== ENCOUNTER 2019-06-26 09:16 | Outpatient (CLI) | payer BC ==
--- NOTE | 2019-06-26 11:36 | SLEEP CARE CONSULTATION ---
Information from patient questionnaire entered by Yomaira Garcia. I have reviewed and concur with the information entered by Yomaira Garcia. This document represents the service I personally performed and the decisions made by me, Jas Quispe MD, [facility]. History of Present Illness Reason for Visit: New patient Chief Complaint: reports: Insomnia, Unrefreshed sleep, Snoring, Excessive daytime sleepiness, Observed pauses in breathing, Fatigue, Frequent awakenings at night Duration of Symptoms: 25 years Usual bedtime: 6713-8197 Time it takes to fall asleep: 5-18 minutes Snores at night: Yes Observed to quit breathing while asleep: Yes Sleeps alone due to snoring: Yes Number of times waking at night: 3-5 Reasons for waking at night: reports: Bathroom Toss, Turn, or Twitch while sleeping: No Recalls having dreams: Yes Usually gets out of bed at: [id number] Feels refreshed in the morning: No Morning headache: Yes Sleepy or fatigued during the day: Yes Ever fallen asleep while driving: Yes Takes day naps: No Prior sleep studies: Yes Year and Where: [address] [facility] in [place], [place] Additional HPI information: I had the pleasure of seeing Ms. Lindsay today regarding obstructive sleep apnea- hypopnea. As you know, she is a 53 year old lady who was diagnosed with the sleep-disordered breathing at [facility] in [place] about 20 years ago. She does not recall the severity. She tried CPAP for about a week but quit because she, being a mouth breather, could not use the nasal mask. She did not pursue the diagnosis until now. She is interested in the treatment again because she has become sleepier and sleepier during the day. She falls asleep during seminars and snores. Many of her friends told her she quit breathing at night. 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 Patient is and lives in [place]. Have you smoked in the past 12 months: Yes Cigarettes per day (20/pack): 20 Years of smokin Quit date: 12/18/18 Smoking Pack Years: 17.0 Alcohol use: Yes Alcohol amount and frequency: 1 drink/month Caffeine use: Yes Caffeine amount and frequency: 3 shot espresso/morning Family History Family history of sleep disordered breathing: Yes Family Hx Sleep Apnea: Mother: Snoring, Father: Snoring, Sibling: Snoring Allergies and Home Medications Drug allergies reviewed: Yes Home medication list reviewed: Yes Review of Systems Weight gain over past 5 years: 30-35 Cardiovascular: denies: high blood pressure, palpitations, chest pain, irregular heart rate or pulse, leg or foot swelling, have to sleep sitting up, other Respiratory: reports: sputum production, chronic cough Gastrointestinal: denies: heartburn, difficulty swallowing, nausea, vomitting, diarrhea, abdominal pain, other Urinary: denies: incontinence, frequency, urgency, impotence, other Neurological: reports: headaches Psychiatric: denies: Attention Deficit Hyperactivity, anxiety, depression, mood disorder, claustrophobia, other Ear/Nose/Throat: reports: wisdom teeth removed Endocrine: reports: sluggishness Musculoskeletal: denies: joint pain, neck pain, back pain, joint swelling, muscle pain or cramping, mobility problems, other Immunologic: denies: sneezing, rash, itching, allergies to food or environment, other Physical Exam Vital signs obtained and entered by: Dr. Quispe Blood Pressure: 133/97 Cuff size: regular Heart Rate: 89 O2 Saturation: 95 Height: 5 ft 10 in Weight: 290 lb Body Mass Index: 41.5 BMI Classification: Obesity Class 3 Neck circumference: 16.5 Mood/affect: normal HEENT: No craniofacial malformation Nostrils: patent to airflow Turbinates: normal Septum: midline Mouth and throat: narrow oropharynx Soft palate: long Hard palate: normal Uvula: normal Uvula visualization: 25% Mallampati Class III Tongue: normal in size Tonsils: small Chin and jaw: normal size and position Neck: normal w/o lymphadenopathy or thyromegaly Heart: regular rate and rhythm Lungs: clear bilaterally Abdomen: soft, non-tender Extremities: no edema or clubbing Neurologic: intact, no focal deficits Impression and Plan IMPRESSION: 1. Obstructive Sleep Apnea-Hypopnea Syndrome, most likely severe, as previously diagnosed, but untreated. The patient appears to be symptomatic for loud and irregular snoring, frequent awakenings during the night, unrefreshed sleep, cognitive impairment, and daytime hypersomnolence. Narrow oropharynx and obesity are common predisposing factors for obstructive sleep apnea-hypopnea syndrome. Pathophysiology of sleep-disordered breathing was discussed. I recommend proceeding to polysomnography to confirm the diagnosis and to assess severity. If he has significant sleep disordered breathing, a manual CPAP titration study will also be performed to find the optimal treatment pressure. I informed the patient of what the sleep studies involve and after some discussion, she agreed to proceed. However, because her insurance is [employer] which generally does not authorize the standard in-laboratory polysomnography, a home sleep apnea test (HSAT) will be ordered. Plan: 1. Order a home sleep apnea test (HSAT). 2. Avoid long distance driving or when feeling sleepy. 3. Avoid alcohol, sedative and muscle relaxant around bedtime. 4. Attempt to lose weight. 5. Return for full face mask after the test. I spent 100% of this 20 minute visit face to face with the patient with greater than 50% of this was spent time counseling the patient and coordination of care.
[2019-06-26 11:37] VITALS: BP 133/97
== END 2019-06-26 09:17 | disposition home or self-care (01) ==
LOC: SC 09:16
PROVIDERS: ATTEND Internal Medicine Pulmonary Disease
DX: G47.33 Obstructive sleep apnea (adult) (pediatric) (principal); E66.9 Obesity, unspecified; Z68.41 Body mass index [BMI] 40.0-44.9, adult
CPT/HCPCS: 99203; 99212

== ENCOUNTER 2019-07-20 19:30 | Outpatient (CLI) | payer BC | END 2019-07-20 23:59 | disposition home or self-care (01) | LOC: SC 19:30 | PROVIDERS: ATTEND Internal Medicine Pulmonary Disease | DX: G47.33 Obstructive sleep apnea (adult) (pediatric) (principal) | CPT/HCPCS: 95806 ==

== ENCOUNTER 2019-08-29 08:17 | Outpatient (CLI) | payer BC ==
[2019-08-29 09:10] VITALS: BP 130/80
--- NOTE | 2019-08-29 09:10 | SLEEP CARE CONSULTATION ---
Information from patient questionnaire entered by Yomaira Garcia. I have reviewed and concur with the information entered by Yomaira Garcia. This document represents the service I personally performed and the decisions made by me, Yanique Graff, RN, MSN, [employer]GER. History of Present Illness Prior sleep studies: Yes Year and Where: 07/2019 [facility] Sleep long term study HPI additional information: TAMERA LINDSAY returns for follow up of the recently performed polysomnography and informed of the findings. I explained the pathophysiology behind obstructive sleep apnea. We then spent quite a bit of time discussing different treatment options. For mild obstruct renee sleep apnea, surgery and oral appliance are alternatives to nasal CPAP therapy but in moderate or severe cases, nasal CPAP is the most effective and reliable treatment. I reviewed the impact of weight changes on sleep apnea and strongly recommended losing weight. After some discussion, the patient opted to go with the nasal CPAP therapy. Nasal autoCPAP set at [id number] will be ordered with rationale explained. A manual titration study will be ordered if unable to find optimal pressure with office adjustments. I explained how CPAP machine works with sample devices [employer] Dreamstation and [employer] [id number] and what to expect when using the machine. Using CPAP every night in order to get used to it was emphasized. Patient advised to put CPAP mask on before getting into bed so as not to fall asleep without CPAP. To assist acclimation to CPAP use, it could also be used for a short time during day while reading or watching TV. The patient was instructed to call the CPAP fernandes pplier to discuss any mechanical problem that may occur. If the mask given is uncomfortable or is difficult to keep on through the night even with adjustment, contact the CPAP supplier as many will replace with another mask style if notified before 30 days. If snoring or perceives is not getting enough air or too much air from the machine, notify this office. AAS patient education PAP tips reviewed and given to patient. Patient counseled not drink alcohol less than 4 hours before bedtime as it can increase snoring and apnea. Patient was cautioned about risks of drowsy driving until sleepiness symptoms resolve. Patient pulls over if she finds she is too tired to drive. AAS patient education on snoring and sleep apnea given and reviewed. Sleep Study - Polysomnography Polysomnography findings: HOME SLEEP STUDY RESULTS: SLEEP TIME AND EFFICIENCY: The sleep study recording began at 12:18:32 AM and ended at 07:59:58 AM. Total recording time was 461.4 minutes. The total sleep time was 405.0 minutes. The sleep efficiency was 87.8 percent. The patient spent 14.5 minutes supine, and spent 390.5 minutes non-supine. The patients own estimate of sleep time was 7.50 hours.recording time was 461.4 minutes. The total sleep time was 405.0 minutes. The sleep efficiency was 87.8 percent. The patient spent 14.5 minutes supine, and spent 390.5 minutes non-supine. The patients own estimate of sleep time was 7.50 hours. RESPIRATORY DATA: The AHI in this report is indexed to sleep time based on actigraphy. The AASM defines this as ELISABETH. The AHI on this type 3 Home Sleep Study may understate the AHI determined on a type 1 or 2 study, since EEG is not monitored resulting in the inability to score non-desaturating hypopneas. Based on 4% Calculation: The AHI4% calculation of 72.6 per hour of recording time was based on a total of 462 scored apneas and 28 scored hypopneas with 4% desaturations. Supine AHI4%: 4.1 per hour. Non-supine AHI4%: 75.0 per hour. Oxygen Summary: Patient's baseline O2 saturation was 95.8 %. The patient spent 147.2 minutes at an oxygen saturation less than 90%, and 71.4 minutes less than 85%. The desaturation index was 50.8 events per hour sleep time. The lowest saturation was 62.8 %. SNORING: The percent of the study time spent snoring was 13.2 %. The Snoring Count was 1548 . The Snoring Index was Patient Name: Tamera Lindsay Study Date: 07/20/2019 : 1965 Page 2 of 7 229.3 . PULSE RATE REVIEW: The mean heart rate was 85 beats per minute. The rate ranged from a low of 28 to a high of 240 beats per minute. DIAGNOSIS CODE: The pt has very severe obstructive sleep apnea G47.33 Severe desaturations were noted. Consider nasal continuous positive airway pressure (CPAP) as the initial treatment choice for severe obstructive sleep apnea. Subjective Initial [place] Sleepiness Scale score: 18 Current [place] Sleepiness Scale score: 24 Allergies and Home Medications Known drug allergies: Yes (hydrocodone only , denies acetaminophen allergy) Home medication list reviewed: Yes (no changes) Allergy and home medication list: Zolpidem as needed verapamil 480mg daily (to keep migraines) compazine prn Albuterol prn Review of Systems Review of systems same as previous: Yes Physical Exam Blood Pressure: 130/80 Cuff size: long Heart Rate: 90 O2 Saturation: 94 Height: 5 ft 10 in Weight: 310 lb 4.8 oz Body Mass Index: 44.5 BMI Classification: Obesity Class 3 Impression and Plan 1. Obstructive Sleep Apnea-Hypopnea Syndrome, very severe , with lowest oxygen saturation of 62.8%. Obviously this is the cause of the patients symptoms of unrefreshed sleep, and excessive daytime sleepiness. Positive pressure therapy could benefit her asthma. As mentioned above, the patient will be started on nasal autoCPAP therapy with pressure set at 4-20 cmH2O until a manual titration study can be completed to find optimal treatment pressure, mode and to check if continued hypoxia once apnea is corrected with PAP treatment. Compliance guidelines also reviewed. A copy of compliance guidelines will be given for reference at check out. An urgent CPAP set up was requested due to apnea and hypoxia severity. A full face mask was advised due to patient reporting being a mouth breather and part of difficulty with use of CPAP 20 years ago was due to this and only nasal mask tried. 2. Cardiac arrhythmia, bradycardia to tachycardia, noted on sleep study. Patient advised to follow up with PCP for further evaluation and agreed with plan. * Nasal auto CPAP therapy, pressure at 4-20 cm H2O. * manual titration * Dreamstation preferred by patient. * Attempt to lose weight. * Avoid alcohol consumption near bedtime. * The patient is again cautioned about driving until sleepiness completely resolves. * Follow up with PCP for further evaluation of arrhythmia. * Return one month after CPAP obtained. I will assess response to therapy and compliance at that time. I spent 100% of this 35 minute visit face to face with the patient with greater than 50% of this was spent time counseling the patient and coordination of care.
== END 2019-08-29 08:18 | disposition home or self-care (01) ==
LOC: SC 08:17
PROVIDERS: ATTEND Nurse Practitioner Family
DX: G47.33 Obstructive sleep apnea (adult) (pediatric) (principal); I49.9 Cardiac arrhythmia, unspecified; E66.9 Obesity, unspecified; Z68.41 Body mass index [BMI] 40.0-44.9, adult
CPT/HCPCS: 99212; 99214

== ENCOUNTER 2019-10-24 08:42 | Outpatient (CLI) | payer BC ==
[2019-10-24 09:39] VITALS: BP 140/90
--- NOTE | 2019-10-24 09:39 | SLEEP CARE CONSULTATION ---
Information from patient questionnaire entered by Sandy Serrano. I have reviewed and concur with the information entered by Sandy Serrano. This document represents the service I personally performed and the decisions made by me, Yanique Graff, RN, MSN, [employer]. History of Present Illness Previous diagnosis: Very Severe, Obstructive Sleep Apnea-Hypopnea Syndrome AHI: 72.6 Reason for follow up: first compliance Equipment type: CPAP Equipment obtained from: [facility] Mask style: Full face (Air Fit) Mask brand: Resmed Backup mask available: No (keep current mask when replaced) Last cushion change: not since set up - ordered CPAP Compliance Data - Data Reviewed with Patient Average duration of nightly device use: 4.4 Compliance rate %: 46.7 Current pressure setting (cmH2O): 4-15 Humidity settin Heated hose settin Average residual AHI: 8.8 Average large leak: 46 min 31 sec Subjective Missed days of use due to: reports: illness (constant rhinorhea from cold prevented use of CPAP. ) Patient concerns: reports: nasal congestion (residual from cold ), dry mouth, nose, throat (severe dry mouth daily), other (claustrophobia). denies: aerophagia, mask discomfort, air blowing in eyes, mask leak noise, condensation in mask/hose, epistaxis Observed to snore while using device: No (single sleeps alone) Current pressure setting perceived as: too low (initially does not feel like getting enough air) On therapy, patient: reports: sleeping better, awakening more refreshed, being more awake and alert during the day, more rested overall (not napping at her desk, no longer requires long naps on days off. ). denies: drowsiness while driving Initial [place] Sleepiness Scale score: 18 Current [place] Sleepiness Scale score: 10 Allergies and Home Medications Known drug allergies: Yes Home medication list reviewed: Yes (see changes ) Allergy and home medication list: Zolpidem 5mg daily prn verapamil 480mg daily Albuterol as needed. Review of Systems Review of systems same as previous: No (URI affected use of CPAP) Physical Exam Blood Pressure: 140/90 (4 shots of expresso) Cuff size: long Heart Rate: 88 O2 Saturation: 96 Height: 5 ft 10 in Weight: 301 lb 9.6 oz (working on weight loss ) Weight change since last visit: lost 9 pounds Body Mass Index: 43.2 BMI Classification: Obesity Class 3 Impression and Plan 1. Obstructive Sleep Apnea-Hypopnea Syndrome, very severe, with fair treatment compliance and apnea control. Compliance was reduced due to inability to use CPAP while ill with a cold due to rhinorhea. On CPAP therapy, the patient has better sleep quality and is more rested overall. For her air hunger and claustrophobia at beginning of treatment I will adjust her autoCPAP range to 13- [id number]. The ramp will be set at 7cmH20 and length adjusted to comfort. It may need to be 15 minutes rather than 30 minutes. Patient is to contact me if the pressure change is uncomfortable. Oral dryness and nasal congestion can be reduced with increasing the CPAP humidity as shown on sample device. The heated hose can be adjusted higher if condensation with higher humidity setting. Printed instructions given and shown how to complete on sample CPAP. In addition, a steamy shower before bed will often assist nasal drainage. Compliance goals discussed. Hopefully the above changes will allow her to use CPAP better. I explained that the goal is to obtain sufficient sleep for her. Most people require 7-9 hour of sleep for optimal mental and physcial function. Patient's apnea severity and rationale for treatment to reduce apnea, improve sleep quality and reduce cardiovascular and cerebrovascular events was reviewed. I also reviewed the benefit of consistent device use of CPAP for her asthma and arrhythmia. * Change CPAP pressure to 13-20 cmH2O * Adjust ramp * Adjust humidity and heated hose * Notify me if snoring with mask or feeling that the pressure is too much or too little * Attempt to lose weight * Call this office if any problems using CPAP * Return for follow up before compliance due, or sooner if concerns arise Time Spent with Patient (minutes): 30 I spent 100% of this visit face to face with the patient with greater than 50% of this was spent time counseling the patient and coordination of care.
== END 2019-10-24 08:43 | disposition home or self-care (01) ==
LOC: SC 08:42
PROVIDERS: ATTEND Nurse Practitioner Family
DX: G47.33 Obstructive sleep apnea (adult) (pediatric) (principal); E66.9 Obesity, unspecified; Z68.41 Body mass index [BMI] 40.0-44.9, adult
CPT/HCPCS: 99212; 99214

== ENCOUNTER 2019-12-11 12:51 | Outpatient (CLI) | payer BC ==
--- NOTE | 2019-12-11 13:33 | SLEEP CARE CONSULTATION ---
Information from patient questionnaire entered by Sandy Serrano. I have reviewed and concur with the information entered by Sandy Serrano. This document represents the service I personally performed and the decisions made by me, Jas Quispe MD, [facility]. History of Present Illness Previous diagnosis: Very Severe, Obstructive Sleep Apnea-Hypopnea Syndrome AHI: 72.6 Reason for follow up: other (6 week - last chance at compliance) Equipment type: CPAP Equipment obtained from: [facility] HPI additional information: HPI: Ms. Lindsay returned today for follow up of nasal CPAP therapy. She was diagnosed to have very severe obstructive sleep apnea-hypopnea syndrome (AHI was 72.6 by a home sleep apnea test). The patient wears with a full face mask. She reports using the device nightly and all through the night. The compliance data show usage in 29 out of the past 30 nights, averaging 5.8 hours a night. The > 4 hour compliance rate for the past 30 days is 96.7%. She complained of no particular problem with the device such as soreness on the face, dry nose, epistaxis, nasal congestion or headache. She thinks that the pressure of 13 - 20 is still a little too low. On the CPAP therapy she notices improvement in her sleep quality, and that she wakes up feeling fresher in the morning and more awake/alert during the day. The [place] Sleepiness Scale score 0. Her notices no snore at all. The average residual AHI is 4.4; and average time in large leak per day is 29 minutes. The 90th percentile pressure is 16.7 cmH2O. CPAP Compliance Data - Data Reviewed with Patient Average duration of nightly device use: 5.85 Compliance rate %: 86.7 (10/23-11/21/19)(last 30 73.3) Current pressure setting (cmH2O): 13-20 Humidity settin Heated hose settin Average residual AHI: 4.4 Average large leak: 54 sec Subjective Initial [place] Sleepiness Scale score: 18 Current [place] Sleepiness Scale score: 0 Allergies and Home Medications Drug allergies reviewed: Yes Home medication list reviewed: Yes Review of Systems Review of systems same as previous: Yes Physical Exam Vital signs obtained and entered by: Physical exam is deferred because the Coronavirus epidemic. Height: 5 ft 10 in Impression and Plan IMPRESSION: 1. Obstructive Sleep Apnea-Hypopnea Syndrome, very severe, with the patient doing well on nasal CPAP therapy. She has excellent compliance and significant clinical improvement. The current pressure appears effective but still slightly uncomfortable. Her mask fits well. Overall, she is very satisfied with treatment and plans to continue with it long-term. For her comfort, I will raise the autoCPAP pressure range a little. PLAN: 1. Set autoCPAP at 15 - 20 cmH2O. 2. Try to lose weight 3. Try other masks and nasal pillows. 4. Return in one year for follow up or earlier if there is any problem with the treatment. I spent 100% of this visit face to face with the patient with greater than 50% of this was spent time counseling the patient and coordination of care.
== END 2019-12-11 12:52 | disposition home or self-care (01) ==
LOC: SC 12:51
PROVIDERS: ATTEND Internal Medicine Pulmonary Disease
DX: G47.33 Obstructive sleep apnea (adult) (pediatric) (principal)
CPT/HCPCS: 99212; 99213

== ENCOUNTER 2020-05-10 13:53 | Emergency (ER) | payer BC, OTHER ==
--- NOTE | 2020-05-10 14:49 | ED Physician Documentation ---
History of Present Illness - Stated complaint Stated Complaint: RT LEG PX - Chief complaint Chief Complaint: Ext Problem - History obtained from History obtained from: Family - History of Present Illness Timing: How many weeks ago (4) - Additonal information Additional information: 54-year-old female reports that over the past month she has had issues with leg cramping and some of these episodes of been very severe with cramping to the medial aspect of both eyes simultaneously severely in for extended period of time without relief. She has had 3 separate episodes like this and she is having some episodes of pain and cramping in the right calf anteriorly and posteriorly. She feels the circulation in her legs has given out on her. She sits at a desk during her work she does not walk around much and she has been hydrating excessively to prevent cramping. This has not made a difference. Review of Systems Constitutional: reports: Myalgias. denies: Fever, Chills, Fatigue, Sweats Eyes: denies: Decreased vision Ears: denies: Ear pain Nose: denies: Congestion Throat: denies: Sore throat Cardiac: denies: Chest pain / pressure Respiratory: denies: Dyspnea, Cough GI: denies: Abdominal Pain, Nausea, Vomiting : denies: Dysuria, Frequency PD PAST MEDICAL HISTORY - Past Medical History Cardiovascular: None Respiratory: None Endocrine/Autoimmune: None GI: None SOUND ART INSTRUCTOR: None : Incontinence HEENT: None Psych: None Musculoskeletal: Other Derm: None - Past Surgical History Past Surgical History: Yes General: Cholecystectomy Ortho: Other /SOUND ART INSTRUCTOR: Oophrectomy - Present Medications Home Medications: Ambulatory Orders Medication Instructions Recorded Confirmed Albuterol Sulfate [Proair Hfa] 8.5 gm IH DAILY PRN 04/16/14 09/11/17 Zolpidem Tartrate [Ambien] 10 mg PO DAILY PRN 04/16/14 09/11/17 Prochlorperazine [Compazine] 1 tab PO DAILY PRN 06/18/16 09/11/17 Verapamil [Calan] 480 mg PO DAILY 06/18/16 09/11/17 Melatonin 20 mg PO PRN PRN 10/11/16 09/11/17 Varenicline Tartrate [Chantix] 1 tab PO DAILY 09/11/17 09/11/17 Azithromycin [Zithromax] 250 mg PO DAILY #6 tablet 03/28/18 predniSONE [Deltasone] 10 mg PO DAILY #26 tablet 03/28/18 Cyclobenzaprine [Flexeril] 10 mg PO TID PRN #20 tablet 05/10/20 - Allergies Allergies/Adverse Reactions: Allergies Allergy/AdvReac Type Severity Reaction Status Date / Time acetaminophen [From Vicodin] AdvReac Intermediate Itching Verified 05/23/19 19:23 hydrocodone bitartrate * AdvReac Intermediate Itching Verified 05/23/19 19:23 [From Vicodin] - Social History Does the pt smoke?: No Smoking Status: Never smoker Does the pt drink ETOH?: Yes Does the pt have substance abuse?: No - Immunizations Immunizations are current?: Yes - POLST Patient has POLST: No PD ED PE NORMAL - Vitals Vital signs reviewed: Yes (hypertensive ) - General General: Alert and oriented X 3, No acute distress, Well developed/nourished - HEENT HEENT: Atraumatic, PERRL, EOMI - Respiratory Respiratory: No respiratory distress - Derm Derm: Normal color, Warm and dry, No rash - Extremities Extremities: No deformity, No edema, Other (There is a easily palpable dorsalis pedis pulse bilaterally to warm feet with good capillary refill. There is no restriction to range of motion to the joints. There is no specific tenderness to the lower extremities.) - Neuro Neuro: Alert and oriented X 3, health promotion specialist 2-12 intact, No motor deficit, No sensory deficit, Normal speech Eye Opening: Spontaneous Motor: Obeys Commands Verbal: Oriented GCS Score: 15 - Psych Psych: Normal mood, Normal affect Results - Vitals Vitals: Vital Signs - 24 hr 05/10/20 05/10/20 14:03 17:35 Temperature 36.9 C 37.1 C Heart Rate 100 101 H Respiratory 18 18 Rate Blood Pressure 147/98 H 144/99 H O2 Saturation 98 94 Oxygen O2 Source Room air - Labs Labs: Laboratory Tests 05/10/20 05/10/20 05/10/20 15:03 15:03 15:03 WBC 11.6 H RBC 4.54 Hgb 13.3 Hct 41.5 MCV 91.4 MCH 29.3 MCHC 32.0 RDW 14.4 Plt Count 191 MPV 9.7 Neut # (Auto) 9.0 H Lymph # (Auto) 1.8 Calhoun # (Auto) 0.6 Eos # (Auto) 0.1 Baso # (Auto) 0.0 Absolute Nucleated RBC 0.00 Nucleated RBC % 0.0 Sodium 139 Potassium 3.6 Chloride 103 Carbon Dioxide 29 Anion Gap 7.0 BUN 18 Creatinine 1.0 Estimated GFR (MDRD) 57 L Glucose 158 H Calcium 8.9 Magnesium 2.1 Total Bilirubin 0.8 AST 21 ALT 25 Alkaline Phosphatase 34 L Total Protein 7.0 Albumin 3.6 Globulin 3.4 Albumin/Globulin Ratio 1.1 Lipase 31 TSH 0.54 Procedures - IVC sono (time) 1440 Bedside IVC sono: IVC measures (cm) (1.56), IVC collapsed c insp (cm) (0.81), Euvolemia PD MEDICAL DECISION MAKING - ED course Complexity details: reviewed old records, reviewed results, re-evaluated patient, considered differential, d/w patient, d/w family ED course: 54-year-old female with a description of severe leg cramps both upper and lower has a normal volume on interrogation the inferior vena cava does not appear dehydrated her blood work is unremarkable as well including calcium magnesium sodium potassium and chloride as well as normal TSH normal blood counts. She is administered dexamethasone in the emergency department here we will try some Flexeril. I expected to find the patient to be dehydrated and she ensured me that she has been drinking lots of fluids and we did find that she was not dehydrated. I did not have a great explanation of why this patient is experiencing these cramps and have asked her to follow-up with her primary care physician for interval interval history and further testing as indicated.She was concerned about the possibility of poor blood circulation and she has a good bounding dorsalis pedis pulse and warm feet bilaterally and I thought this unlikely. Departure - Departure Disposition: 01 Home, Self Care Clinical Impression: Leg cramping Condition: Stable Instructions: ED Muscle Pain Leg Cramps Follow-Up: Juan Mauro MD [Primary Care Provider] - Prescriptions: Cyclobenzaprine [Flexeril] 10 mg PO TID PRN #20 tablet PRN Reason: Spasms Discharge Date/Time: 05/10/20 17:35
[2020-05-10 15:20] LABS: BASOPHILS % (AUTO) 0.3 %; EOSINOPHILS # (AUTO) 0.1 10^3/uL (0.0-0.7); EOSINOPHILS % (AUTO) 0.8 %; HGB - HEMOGLOBIN 13.3 g/dL (12.0-16.0); LYMPHOCYTES # (AUTO) 1.8 10^3/uL (1.5-3.5); LYMPHOCYTES % (AUTO) 15.7 %; MEAN CORPUSCULAR HEMOGLOBIN 29.3 pg (27.0-31.0); MEAN CORPUSCULAR VOLUME 91.4 fL (81.0-99.0); MEAN PLATELET VOLUME 9.7 fL (7.9-10.8); MONOCYTES # (AUTO) 0.6 10^3/uL (0.0-1.0); MONOCYTES % (AUTO) 5.4 %; NEUTROPHILS % (AUTO) 77.4 %; PLT - PLATELET COUNT 191 10^3/uL (130-450); RED BLOOD COUNT 4.54 10^6/uL (4.20-5.40); RED CELL DISTRIBUTION WIDTH 14.4 % (12.0-15.0); WHITE BLOOD COUNT 11.6 x10^3/uL (4.8-10.8)
[2020-05-10 15:32] LABS: ALBUMIN 3.6 g/dL (3.2-5.5); ALBUMIN/GLOBULIN RATIO 1.1 (1.0-2.2); BILIRUBIN,TOTAL 0.8 mg/dL (0.2-1.0); CALCIUM 8.9 mg/dL (8.5-10.3); MAGNESIUM 2.1 mg/dL (1.7-2.8)
[2020-05-10] MEDS ORDERED: DEXAMETHASONE 10 MG/ML VIAL PO STA (17:15)
[2020-05-10] MEDS ORDERED: CHERRY SYRUP 10 ML UDC PO ONE (17:15)
[2020-05-10 17:36] VITALS: BP 144/99
== END 2020-05-10 17:35 | disposition home or self-care (01) ==
LOC: ED 13:53
DX: R25.2 Cramp and spasm (principal)
CPT/HCPCS: 36415; 83690; 83735; 99283; 99284; A9270; 80053; 84443; 85025

== ENCOUNTER 2020-07-03 08:29 | Outpatient (CLI) | payer OTHER ==
--- NOTE | 2020-07-03 09:12 | SLEEP CARE CONSULTATION ---
Information from patient questionnaire entered by Sandy Serrano. I have reviewed and concur with the information entered by Sandy Serrano. This document represents the service I personally performed and the decisions made by , Dorita Foy ARNP. History of Present Illness Service Date and Time: 07/03/2020828 Previous diagnosis: Very Severe, Obstructive Sleep Apnea-Hypopnea Syndrome AHI: 72.6 (in 2019) Reason for follow up: other (7 month - transfer DME) Equipment type: CPAP Equipment obtained from: [employer] (good but needs to change due to insurance change) Mask style: Full face (Air Fit) Backup mask available: Yes (old mask) Last cushion change: 6 weeks Prior sleep studies: Yes Year and Where: 2018 - [facility] Sleep Type of Sleep Study: Home sleep study HPI additional information: SAMANTHA ELLIS was diagnosed to have very severe, AHI 72.6, obstructive sleep apnea-hypopnea syndrome and returned today for CPAP therapy seven month follow- up with transfer DME. Sleep Study - Results Prior sleep studies: Yes Year and Where: 07/2019 [facility] Sleep nursing home study CPAP Compliance Data - Data Reviewed with Patient Average duration of nightly device use: 5.5 Compliance rate %: 96.1 (180 days) Current pressure setting (cmH2O): 15-20 Humidity settin Heated hose settin Average residual AHI: 2.5 Average large leak: 34 sec Subjective Patient concerns: reports: dry mouth, nose, throat. denies: aerophagia, mask di scomfort, air blowing in eyes, mask leak noise, condensation in mask/hose, nasal congestion, epistaxis, other Observed to snore while using device: No Current pressure setting perceived as: comfortable On therapy, patient: reports: sleeping better, awakening more refreshed, being more awake and alert during the day, more rested overall. denies: drowsiness while driving Initial [place] Sleepiness Scale score: 18 (in 2019) Current [place] Sleepiness Scale score: 2 Allergies and Home Medications Drug allergies reviewed: Yes (no changes) Home medication list reviewed: Yes (no changes) Review of Systems Review of systems same as previous: Yes (no changes) Physical Exam Heart Rate: 90 O2 Saturation: 98 Height: 5 ft 11 in Weight: 289 lb Body Mass Index: 40.3 BMI Classification: Morbidly Obese Impression and Plan 1. Obstructive Sleep Apnea-Hypopnea Syndrome, very severe, with good treatment compliance and good apnea control. On CPAP therapy, the patient has better sleep quality and is more rested overall. Patient states she has been making payments on her present machine since May to be able to keep it since her DME does not work with her new insurance. She may need new machine if she has to return her current machine obtained in 08/2019. Patient was informed that another DME can be used. I will have my patient coordinator front desk inform of DME options. A DWO prescription will then be made. Patient advised to contact this office if further supply problems. Patient's apnea severity and rationale for treatment to reduce apnea, improve sleep quality and reduce cardiovascular and cerebrovascular events was reviewed. I also reviewed the benefit of consistent device use of CPAP for arrhythmia and asthma. * Continue auto CPAP pressure at 15-20 cmH2O * Transfer DME * Notify me if snoring with mask or feeling that the pressure is too much or too little * Attempt to lose weight * Call this office if any problems using CPAP * Return for follow up in a year, or sooner if concerns arise Counseling Topics: Weight loss health impact Visit Type: In Office Time Spent with Patient (minutes): 20 Provider Statement: I spent 100% of the Face to Face Visit with the patient with greater than 50% spent counseling the patient and coordination of care.
== END 2020-07-03 08:30 | disposition home or self-care (01) ==
LOC: SC 08:29
PROVIDERS: ATTEND Nurse Practitioner Family
DX: G47.33 Obstructive sleep apnea (adult) (pediatric) (principal); E66.01 Morbid (severe) obesity due to excess calories; Z68.41 Body mass index [BMI] 40.0-44.9, adult
CPT/HCPCS: 99212; 99213

== ENCOUNTER 2020-09-18 07:51 | Outpatient (CLI) | payer OTHER ==
--- NOTE | 2020-09-18 08:16 | SLEEP CARE CONSULTATION ---
Information from patient questionnaire entered by Sandy Serrano. I have reviewed and concur with the information entered by Sandy Serrano. This document represents the service I personally performed and the decisions made by , Dorita Foy ARNP. History of Present Illness Service Date and Time: 09/18/2020 0751 Previous diagnosis: Very Severe, Obstructive Sleep Apnea-Hypopnea Syndrome AHI: 72.6 (in 2019) Reason for follow up: first compliance Equipment type: CPAP Equipment obtained from: [employer] (in [place]; getting supplies as needed) Mask style: Full face (Air Fit) Backup mask available: Yes (old mask) Last cushion change: 2 weeks ago Prior sleep studies: Yes Year and Where: 07/2019 [facility] shelter study Type of Sleep Study: Home sleep study HPI additional information: SAMANTHA ELLIS was diagnosed to have very severe, AHI 72.6, obstructive sleep apnea-hypopnea syndrome and returned today for CPAP therapy first compliance follow-up. Sleep Study - Results Type of Sleep Study: Home sleep study Prior sleep studies: Yes Year and Where: 07/2019 [facility] Sleep shelter study CPAP Compliance Data - Data Reviewed with Patient Average duration of nightly device use: 5 hr 57 min Compliance rate %: 100 Current pressure setting (cmH2O): 15-20 Humidity settin Average residual AHI: 1.4 Subjective Patient concerns: denies: aerophagia, mask discomfort, air blowing in eyes, mask leak noise, condensation in mask/hose, nasal congestion, dry mouth, nose, throat, epistaxis, other Observed to snore while using device: No Current pressure setting perceived as: comfortable On therapy, patient: reports: sleeping better, awakening more refreshed, being more awake and alert during the day, more rested overall. denies: drowsiness while driving Initial [place] Sleepiness Scale score: 18 (in 2019) Current [place] Sleepiness Scale score: 3 Allergies and Home Medications Drug allergies reviewed: Yes (acetaminophen, hydrocodone bitartrate) Home medication list reviewed: Yes (no changes) Review of Systems Review of systems same as previous: Yes (no changes) Physical Exam Heart Rate: 85 O2 Saturation: 98 Height: 5 ft 11 in Weight: 286 lb Body Mass Index: 39.9 BMI Classification: Obese Impression and Plan 1. Obstructive Sleep Apnea-Hypopnea Syndrome, very severe, with excellent treatment compliance and good apnea control. On CPAP therapy, the patient has better sleep quality and is more rested overall. Patient's apnea severity and rationale for treatment to reduce apnea, improve sleep quality and reduce cardiovascular and cerebrovascular events was reviewed. I also reviewed the benefit of consistent device use of CPAP for arrhythmia and asthma. 2. Obesity, unspecified. Currently patients BMI is 39.9. She has started to increase her exercise and making changes to her diet to lose weight. Obesity increases the risk of apnea, CPAP pressure requirements and overall health risks especially cardiovascular and diabetes. Thus patient is advised to continue to try to lose weight. Weight loss can be done with reducing portion size, reducing refined foods and balancing content with vegetables, fruit and whole grain foods. A diet consultation can be helpful in achieving optimal weight loss goals. * Continue auto CPAP pressure at 15-20 cmH2O * Notify me if snoring with mask or feeling that the pressure is too much or too little * Attempt to lose weight * Call this office if any problems using CPAP * Return for follow up in 1 year, or sooner if concerns arise Counseling Topics: Spare mask, Weight loss health impact Visit Type: In Office Time Spent with Patient (minutes): 15 Provider Statement: I spent 100% of the Face to Face Visit with the patient with greater than 50% spent counseling the patient and coordination of care.
== END 2020-09-18 07:52 | disposition home or self-care (01) ==
LOC: SC 07:51
PROVIDERS: ATTEND Nurse Practitioner Family
DX: G47.33 Obstructive sleep apnea (adult) (pediatric) (principal); E66.9 Obesity, unspecified; Z68.39 Body mass index [BMI] 39.0-39.9, adult
CPT/HCPCS: 99212; 99213

== ENCOUNTER 2021-01-20 07:54 | Outpatient (CLI) | payer OTHER ==
--- NOTE | 2021-01-21 12:15 | Mammography Report ---
BILATERAL DIGITAL SCREENING MAMMOGRAM 3D/2D: 01/20/2021 CLINICAL: Routine screening. Comparison is made to exams dated: 01/30/2015 mammogram, 11/19/2013 mammogram, and 11/07/2007 mammogram - [facility]. There are scattered fibroglandular elements in both breasts. No significant masses, calcifications, or other findings are seen in either breast. There has been no significant interval change. IMPRESSION: NEGATIVE There is no mammographic evidence of malignancy. A 1 year screening mammogram is recommended. This exam was interpreted at Station ID: [id number]. NOTE: For mammograms, a report in lay terms will be sent to the patient. Approximately 15% of breast malignancies will not be visualized mammographically. In the management of a palpable breast mass, a negative mammogram must not discourage biopsy of a clinically suspicious lesion. Electronically Signed By: Jeremiah Akbar M.D. ddp/penrad:01/20/2021 08:35:18 ACR BI-RADS Category 1: Negative 3341F PARENCHYMAL PATTERN: (A) - The breast(s) demonstrate(s) scattered fibroglandular densities. BI-RADS CATEGORY: (1) - 1 RECOMMENDATION: (ANNUAL) - Recommend routine annual screening mammography. [id number] 1 year screening LATERALITY: (B)
== END 2021-01-20 07:55 | disposition home or self-care (01) ==
LOC: DI.S 07:54
PROVIDERS: ATTEND Family Medicine
DX: Z12.31 Encounter for screening mammogram for malignant neoplasm of breast (principal)

== ENCOUNTER 2021-11-19 12:01 | Outpatient (CLI) | payer OTHER ==
--- NOTE | 2021-11-19 18:04 | XRAY Report ---
PROCEDURE: Lumbar Spine 2 View INDICATIONS: LOW BACK PAIN TECHNIQUE: 2 views of the lumbar spine were acquired. COMPARISON: None. FINDINGS: Bones: 5 [id number] vertebrae are present. There is normal bony alignment. No acute vertebral body compression fractures. No suspicious bony lesions. Mild multilevel lumbar spondylosis with mi nimal degenerative endplate changes and facet arthropathy. Soft tissues: Overlying bowel gas pattern is normal. No suspicious soft tissue calcifications. IMPRESSION: Lumbar spine without acute fracture or malalignment. Mild multilevel lumbar spondylosis. Reviewed by: Rico Lai MD on 11/19/2021 5:03 PM [facility] Approved by: Rico Lai MD on 11/19/2021 5:03 PM [facility] Station ID: [id number]
== END 2021-11-19 12:02 | disposition home or self-care (01) ==
LOC: DI.S 12:01
PROVIDERS: ATTEND Family Medicine
DX: M47.816 Spondylosis without myelopathy or radiculopathy, lumbar region (principal)

== ENCOUNTER 2022-06-23 14:02 | Outpatient (CLI) | payer OTHER ==
--- NOTE | 2022-06-23 15:40 | Ultrasound Report ---
PROCEDURE: Abdomen Complete INDICATIONS: LOWER ABD PAIN TECHNIQUE: Real-time scanning was performed of the abdominal and retroperitoneal organs, with image documentatio n. COMPARISON: CT abdomen pelvis 919 FINDINGS: Liver: Liver is enlarged measuring 20.5 cm with mild steatosis. Gallbladder: Removed. Biliary ducts: Intrahepatic bile ducts are non-dilated. Extrahepatic bile duct caliber measures 12. 1 mm. This is unchanged compared to 2019 and suspected be related to postcholecystectomy sequela. Pancreas: Visualized portions of the pancreas demonstrate dilation of the pancreatic duct measuring approximately 3.1 mm. This is unchanged compared to prior exam. Spleen: Spleen is normal in size and homogeneous in echotexture. Kidneys: Kidneys are normal in size and echotexture. Right kidney measures 11.0 cm long; left kidne y measures 10.7 cm long. No hydronephrosis or nephrolithiasis. No solid masses. Aorta: Visualized aorta is normal in caliber at less than 3 cm. Iliacs: Proximal common iliac arteries are normal in caliber at less than 2.5 cm. IVC: Intrahepatic inferior vena cava is patent. Miscellaneous: No free abdominal fluid. IMPRESSION: Mild hepatomegaly with steatosis. Cholecystectomy. Reviewed by: Kim Garvey MD on 06/23/2022 3:38 PM PDT Approved by: Kim Garvey MD on 06/23/2022 3:38 PM PDT Station ID: [id number]
== END 2022-06-23 14:03 | disposition home or self-care (01) ==
LOC: DI 14:02
PROVIDERS: ATTEND Naturopath
DX: R10.30 Lower abdominal pain, unspecified (principal); K76.0 Fatty (change of) liver, not elsewhere classified; R16.0 Hepatomegaly, not elsewhere classified; Z90.49 Acquired absence of other specified parts of digestive tract

== ENCOUNTER 2022-09-10 11:42 | Outpatient (CLI) | payer OTHER ==
--- NOTE | 2022-09-10 10:23 | SLEEP CARE CONSULTATION ---
Information from patient questionnaire entered by Kathy Guerrero MA. I have reviewed and concur with the information entered by Kathy Guerrero MA. This document represents the service I personally performed and the decisions made by , Dorita Foy ARNP. History of Present Illness Service Date and Time: 09/10/2022 1020 Previous diagnosis: Very Severe, Obstructive Sleep Apnea-Hypopnea Syndrome AHI: 72.6 (in 2019) Reason for follow up: annual (last seen 09/07) Equipment type: CPAP (ResMed Airsense 10) Equipment obtained from: [employer] (in [place]; getting supplies as needed) Mask style: Full face (Air Fit) Mask brand: Resmed Backup mask available: Yes (old mask) Last cushion change: 2 days Prior sleep studies: Yes Year and Where: 07/2019 [facility] Sleep correction study Type of Sleep Study: Home sleep study HPI additional information: SAMANTHA ELLIS was diagnosed to have very severe, AHI 72.6, obstructive sleep apnea-hypopnea syndrome and returns via video telehealth visit today for CPAP therapy annual follow-up. Sleep Study - Results Type of Sleep Study: Home sleep study Prior sleep studies: Yes Year and Where: 07/2019 [facility] Sleep correction study CPAP Compliance Data - Data Reviewed with Patient Average duration of nightly device use: 5 hours 29 minutes Compliance rate %: 93 (176/180 days used) Current pressure setting (cmH2O): 15-20 Average residual AHI: 0.3 Central apnea: 0.1 Obstructive apnea: 0.1 Hypopnea: 0.1 Average large leak: 3.3 lpm Subjective Missed days of use due to: reports: other (power outage) Patient concerns: denies: aerophagia, mask discomfort, air blowing in eyes, mask leak noise, condensation in mask/hose, nasal congestion, dry mouth, nose, throat, epistaxis Observed to snore while using device: No Current pressure setting perceived as: comfortable On therapy, patient: reports: sleeping better, awakening more refreshed, being m ore awake and alert during the day, more rested overall, other (can't sleep without it). denies: drowsiness while driving Initial [place] Sleepiness Scale score: 18 (in 2019) Current [place] Sleepiness Scale score: 0 (PT STATES THAT CPAP HAS CHANGED HER LIFE ) Allergies and Home Medications Drug allergies reviewed: Yes (as listed in EMR) Home medication list reviewed: Yes (no changes) Review of Systems Review of systems same as previous: Yes (no changes) Physical Exam Vital signs obtained and entered by: BASILIA BOYER VIA PHONE Height: 5 ft 10 in Weight: 225 lb Weight change since last visit: 61 lb loss in last year Body Mass Index: 32.3 BMI Classification: Obese Impression and Plan 1. Obstructive Sleep Apnea-Hypopnea Syndrome, very severe, with good treatment compliance and good apnea control. On CPAP therapy, the patient has better sleep quality and is more rested overall. Patient has significant improvement of their sleep apnea and are satisfied with current CPAP therapy. Patient denies problems with oral dryness, nasal congestion, epistaxis, skin irritation or aerophagia. Patient's apnea severity and rationale for treatment to reduce apnea, improve sleep quality and reduce cardiovascular and cerebrovascular events was reviewed. I also reviewed the benefit of consistent device use of CPAP for arrhythmia and asthma. 2. Obesity, unspecified. Currently patients BMI is 32.3. She has lost 61 lbs since last year. She is eating controlled portions. Obesity increases the risk of apnea, CPAP pressure requirements and overall health risks especially cardiovascular and diabetes. Thus patient is advised to continue to try to lose weight. She voice agreement. * Continue auto CPAP pressure at 15-20 cmH2O * Update supplies * Notify me if snoring with mask or feeling that the pressure is too much or too little * Continue to try to lose weight * Call this office if any problems using CPAP * Return for follow up in 1 year, or sooner if concerns arise Counseling Topics: Spare mask, Weight loss health impact Prescriptions: Device supplies Visit Type: Telehealth Video Video Type: Doximity Patient Location: Work Location of Provider: Office Patient agrees and consents to this telehealth visit type: Yes Patient agrees to have their insurance billed: Yes Time Spent with Patient (minutes): 22 Provider Statement: I spent 100% of the Telehealth Video Call with the patient with greater than 50% spent counseling the patient and coordination of care.
== END 2022-09-10 11:43 | disposition home or self-care (01) ==
LOC: SC 11:42
PROVIDERS: ATTEND Nurse Practitioner Family
DX: G47.33 Obstructive sleep apnea (adult) (pediatric) (principal); E66.9 Obesity, unspecified; Z68.32 Body mass index [BMI] 32.0-32.9, adult

== ENCOUNTER 2023-01-25 11:10 | Emergency (ER) | payer OTHER ==
[2023-01-25 11:22] VITALS: BP 150/108
--- NOTE | 2023-01-25 11:42 | XRAY Report ---
PROCEDURE: Hand 3 View LT INDICATIONS: Trauma TECHNIQUE: 3 views of the hand(s) acquired. COMPARISON: None. FINDINGS: Bones: No fractures or dislocations. No suspicious bony lesions. Multifocal joint space narrowing and periareolar articular osteophyte formation at the scaphotrapezial, first metacarpal joint, as we ll as the interphalangeal joints of the digits. Soft tissues: No suspicious soft tissue calcifications or masses. IMPRESSION: No acute fracture. No osseous lesion. If symptoms and/or clinical suspicion for pathology continue, f urther assessment with repeat plain films, or advanced imaging (e.g., CT, MRI, or bone scan) is recom mended for further assessment. Reviewed by: Gilma Calvillo MD on 01/25/2023 11:40 AM PDT Approved by: Gilma Calvillo MD on 01/25/2023 11:40 AM PDT Station ID: [id number]
[2023-01-25] MEDS ORDERED: TETANUS/DIPHTHERIA/PERTUSSIS 0.5 ML SYRINGE IM ONE (12:23)
[2023-01-25] MEDS ORDERED: BACITRACIN ZINC OINT 1 PACKET TOP STA (12:23)
--- NOTE | 2023-01-25 12:26 | ED Physician Documentation ---
History of Present Illness - Stated complaint Stated Complaint: LT HAND LAC - Chief complaint Chief Complaint: Laceration - Additonal information Additional information: 57-year-old female presents emergency department for evaluation of a laceration to the base of her left thumb. She was attempting to open an oyster with a dirty chisel and it slipped. She has a 3 cm laceration to the base of the left thumb on palmar side. She has limited flexion extension. Unclear if due to pain or perhaps early tendon injury. Last tetanus was in 2009. 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[employer]: Oophrectomy - Present Medications Home Medications: Ambulatory Orders Medication Instructions Recorded Confirmed Albuterol Sulfate [Proair Hfa] 8.5 gm IH DAILY PRN 04/16/14 09/11/17 Zolpidem Tartrate [Ambien] 10 mg PO DAILY PRN 04/16/14 09/11/17 Prochlorperazine [Compazine] 1 tab PO DAILY PRN 06/18/16 09/11/17 Verapamil [Calan] 480 mg PO DAILY 06/18/16 09/11/17 Melatonin 20 mg PO PRN PRN 10/11/16 09/11/17 Varenicline Tartrate [Chantix] 1 tab PO DAILY 09/11/17 09/11/17 Azithromycin [Zithromax] 250 mg PO DAILY #6 tablet 03/28/18 predniSONE [Deltasone] 10 mg PO DAILY #26 tablet 03/28/18 Cyclobenzaprine [Flexeril] 10 mg PO TID PRN #20 tablet 05/10/20 - Allergies Allergies/Adverse Reactions: Allergies Allergy/AdvReac Type Severity Reaction Status Date / Time acetaminophen [From Vicodin] AdvReac Intermediate Itching Verified 01/25/23 11:22 hydrocodone bitartrate * AdvReac Intermediate Itching Verified 01/25/23 11:22 [From Vicodin] - Social History Does the pt smoke?: No Smoking Status: Never smoker Does the pt drink ETOH?: Yes Does the pt have substance abuse?: No - Immunizations Immunizations are current?: Yes - POLST Patient has POLST: No PD ED PE NORMAL - General General: Alert and oriented X 3, No acute distress - Extremities Extremities: Other (3 cm laceration palmar side base of left thumb. Week flexion extension at MCP and DIP joint. Otherwise neurovascular intact) Results - Vitals Vitals: Vital Signs - 24 hr 01/25/23 11:16 Temperature 37 C Heart Rate 93 Respiratory 16 Rate Blood Pressure 150/108 H O2 Saturation 98 Oxygen O2 Source Room air Procedures - Laceration (location) Left thumb Length in cm: 3 Wound type: Curved, Into subcut fat, Into muscle, Contaminated Neurovascular status: Sensory intact, Motor intact Anesthesia: Lidocaine 1% Wound preparation: Chlorhexadine, Irrigated copiously NS Skin layer closure: Nylon, Interrupted, Size #-0 - enter number (4), Sutures - enter # (44) Other: Patient tolerated well, No complications, Tetanus booster given PD Medical Decision Making - ED course Complexity details: d/w patient ED course: 57-year-old Female presents emergency department for evaluation of left thumb laceration sustained when trying to open an oyster. Her tetanus was updated today. On exam she had reduced flexion at MCP and DIP joint though this improved after she was given lidocaine for anesthesia in preparation of sewing. It is possible she has a subtle tendon injury. The wound was thoroughly irrigated and closed with 4 nylon four-point 0 sutures. We discussed routine wound care as well as emergent return precautions for concerns of infection. Advised to wear a thumb spica splint and if symptoms not markedly improved following healing of this laceration may need to be seen by hand surgery Departure - Departure Disposition: 01 Home, Self Care Clinical Impression: Laceration of left thumb Qualifiers: Encounter type: initial encounter Damage to nail status: without damage Foreign body presence: without foreign body Qualified Code(s): S61.012A - Laceration without foreign body of left thumb without damage to nail, initial encounter Condition: Stable Record reviewed to determine appropriate education?: Yes Comments: Your suture(s) should be removed in 7 to 10 days. In 24 hours you may remove the dressing wash gently with warm soap and water, apply any antibiotic ointment and a simple bandage. Your tetanus is up-to-date as of today Please attempt to keep your wound clean and dry. Do not submerge it in dirty dishwater or bath water. Return to the emergency department if you have any concerns of infection such as redness, fevers milky drainage increased pain. You ability to move the thumb improved when we and at the size of the thumb. However it is possible you have a subtle flexor tendon injury at the base of this thumb. Because of this I want you to wear the thumb spica splint while this laceration heals. Once healed if you find that your movement is not normal for you you should ask for referral to hand surgery through your primary care provider.
[2023-01-25] MEDS ORDERED: ACETAMINOPHEN 325 MG TABLET PO STA (13:06)
== END 2023-01-25 13:13 | disposition home or self-care (01) ==
LOC: ED 11:10
DX: S61.012A Laceration without foreign body of left thumb without damage to nail, initial encounter (principal); W26.8XXA Contact with other sharp object(s), not elsewhere classified, initial encounter; Z23 Encounter for immunization; Z71.85 Encounter for immunization safety counseling
CPT/HCPCS: 12002; 73130; 90471; 90715; 99283; A9270

== ENCOUNTER 2024-04-30 15:06 | Outpatient (CLI) | payer OTHER ==
--- NOTE | 2024-05-02 08:56 | Mammography Report ---
BILATERAL DIGITAL SCREENING MAMMOGRAM 3D/2D: 04/30/2024 CLINICAL: Routine screening. Comparison is made to exams dated: 01/20/2021 mammogram, 03/25/2016 mammogram, 01/30/2015 mammogram, 2013 mammogram, and 11/07/2007 mammogram - [facility]. There are scattered areas of fibroglandular density in both breasts (category b / 25%-50% glandular t issue). No significant masses, calcifications, or other findings are seen in either breast. There has been no significant interval change. IMPRESSION: NEGATIVE There is no mammographic evidence of malignancy. A 1 year screening mammogram is recommended. Based on the Tyrer Cuzick model (a risk assessment model) the patient's lifetime risk is 7.3% and her 10 year risk is 2.9%. According to the ACR, ACS, and NCCN guidelines, an annual breast MRI exam mary anne g with mammogram is recommended if the patient's lifetime risk is 20% or greater. This exam was interpreted at Station ID: [id number]. NOTE: For mammograms, a report in lay terms will be sent to the patient. Approximately 15% of breast malignancies will not be visualized mammographically. In the management of a palpable breast mass, a negative mammogram must not discourage biopsy of a clinically suspicious lesion. Electronically Signed By: Cheyenne Rothman M.D., Ph.D. /rolo:05/01/2024 08:59:48 letter sent: No_Letter ACR BI-RADS Category 1: Negative 3341F PARENCHYMAL PATTERN: (A) - The breast(s) demonstrate(s) scattered fibroglandular densities. BI-RADS CATEGORY: (1) - 1 RECOMMENDATION: (ANNUAL) - Recommend routine annual screening mammography. [id number] 1 year screening LATERALITY: (B)
== END 2024-04-30 15:07 | disposition home or self-care (01) ==
LOC: DI.S 15:06
PROVIDERS: ATTEND Registered Nurse
DX: Z12.31 Encounter for screening mammogram for malignant neoplasm of breast (principal); R92.323 Mammographic fibroglandular density, bilateral breasts

== ENCOUNTER 2024-06-12 12:05 | Outpatient (CLI) | payer OTHER ==
--- NOTE | 2024-06-12 18:33 | XRAY Report ---
PROCEDURE: Lumbar Spine 2-3V INDICATIONS: LUMBAR RADICULOPATHY TECHNIQUE: 3 views of the lumbar spine were acquired. COMPARISON: Lumbar spine radiographs 11/19/2021 FINDINGS: Surgical change: None. Bones: 5 [id number] vertebrae are present. There is normal bony alignment. No vertebral body co mpression fractures. No suspicious bony lesions. Multilevel degenerative endplate changes. Multileve l facet hypertrophy. Soft tissues: Overlying bowel gas pattern is normal. No suspicious soft tissue calcifications. Righ t upper quadrant cholecystectomy clips. IMPRESSION: Mild to moderate multilevel lumbar spondylosis, similar when compared to the prior radiographs. Reviewed by: Jorge Ulloa MD on 06/12/2024 6:32 PM PDT Approved by: Jorge Ulloa MD on 06/12/2024 6:32 PM PDT Station ID: [id number]
== END 2024-06-12 12:06 | disposition home or self-care (01) ==
LOC: DI.S 12:05
DX: M47.26 Other spondylosis with radiculopathy, lumbar region (principal)